=== PATIENT | female | born 1990 | race Caucasian/White ===

== ENCOUNTER 2018-03-03 09:44 | Emergency (ER) | payer OTHER ==
[2018-03-03 11:24] LABS: Urine Blood TRACE (NEG); Urine Glucose NEGATIVE (NEG); Urine Protein TRACE (NEG); Urine pH 6.5 (5.0-7.0)
[2018-03-03] MEDS ORDERED: ONDANSETRON 4 MG/2 ML VIAL ONE (11:43)
[2018-03-03] MEDS ORDERED: FAMOTIDINE 20 MG/2 ML VIAL IV ONE (11:44)
[2018-03-03 11:53] LABS: Absolute Lymphocytes (CBC) 1.4 K/uL (0.7-4.9); Absolute Monocytes 0.6 K/uL (0.1-1.3); Absolute Neutrophil 6.1 K/uL (1.8-8.0); Basophils % 0.7 % (0-1.3); Eosinophils % 0.1 % (0-4.4); Hematocrit 40.8 % (36.0-45.0); Lymphocytes % 17.3 % (15.3-44.8); MCH 32.7 pg (27.0-35.0); MCV 95.4 fL (80-100); MPV 8.8 fL (7.6-11.3); Monocytes % 7.6 % (3.3-12.3); RBC Red Blood Cell Count 4.27 M/uL (3.86-4.86)
[2018-03-03 12:04] LABS: Bicarbonate 19 mEq/L (21-31); Glucose Level 96 mg/dL (65-120); Lipase 15 U/L (22-51); Potassium 3.1 mEq/L (3.6-5.0); Sodium Level 137 mEq/L (135-145)
[2018-03-03 12:10] LABS: ALT/SGPT 73 IU/L (10-60); AST/SGOT 101 IU/L (10-42); Albumin 4.3 g/dL (3.2-5.5); Alkaline Phosphatase 95 IU/L (42-121); Amylase Level 62 U/L (28-100); BUN Blood Urea Nitrogen 6 mg/dL (6-20); Bilirubin Direct 0.2 mg/dL (0-0.2); Bilirubin Total 0.9 mg/dL (0.3-1.2); Protein, Total 7.8 g/dL (6.0-8.3)
[2018-03-03 12:31] LABS: Urine Bacteria <20 /HPF (<20); Urine Culture Reflex Order REFLEXED
[2018-03-03] MEDS ORDERED: POTASSIUM 25 MEQ EFFERV TAB ONE (12:46)
--- NOTE | 2018-03-03 12:54 | RAD REPORT ---
EXAM DESCRIPTION: US - Abdomen Exam Limited - 03/03/2018 12:36 pm CLINICAL HISTORY: Abdominal pain. COMPARISON: None. FINDINGS: The gallbladder demonstrates no gallstones. No pericholecystic fluid or gallbladder wall t hickening. The common bile duct is normal measuring 3 mm. The liver demonstrates no findings of intrahepatic biliary dilatation. IMPRESSION: Unremarkable examination.
--- NOTE | 2018-03-03 13:12 | ER ---
Nurse's Notes [facility] Name: Sukhwinder Barry Age: 27 yrs Sex: Female : 1990 Arrival Date: 03/03/2018 Time: 09:49 Bed 6 Private MD: Diagnosis: Hypokalemia;Depression;Nausea and vomiting Presentation: 03/03 10:15 Presenting complaint: Patient states: scarlett been throwing up for weeks now,, im extremely hj depressed and im bipolar and im an alcoholic, i drink today; reports abdominal pain, diarrhea and constipation; reports fever and chills;. Transition of care: patient was not received from another setting of care. Onset of symptoms was March 03, 2018. Care prior to arrival: None. 10:15 Method Of Arrival: Ambulatory 10:15 Acuity: MASOUD 3 hj Triage Assessment: 10:18 General: Appears in no apparent distress. uncomfortable, Behavior is calm, cooperative, hj appropriate for age. Pain: Complains of pain in abdomen. 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 - Social history:: Smoking status: unknown Patient uses alcohol, on a daily basis. "No more than a fifth per day of vodka.". Screenin:21 Abuse screen: Denies threats or abuse. Denies injuries from another. Nutritional jl7 screening: No deficits noted. Tuberculosis screening: No symptoms or risk factors identified. Fall Risk None identified. Assessment: 11:00 General: Appears uncomfortable, Behavior is cooperative, anxious, crying, Smells of jl7 alcohol. Pain: Denies pain. Neuro: Level of Consciousness is awake, alert, obeys commands, Oriented to person, place, time, situation. Cardiovascular: Heart tones S1 S2 present Patient's skin is warm and dry. Respiratory: Airway is patent Respiratory effort is even, unlabored, Respiratory pattern is regular, symmetrical. GI: Abdomen is flat, non-distended, Bowel sounds present X 4 quads. Reports nausea, vomiting. : No signs and/or symptoms were reported regarding the genitourinary system. EENT: No signs and/or symptoms were reported regarding the EENT system. Derm: Skin is pink, warm \\T\\ dry. Musculoskeletal: No signs and/or symptoms reported regarding the musculoskeletal system. 12:30 Reassessment: Patient and/or family updated on plan of care and expected duration. Pain jl7 level reassessed. Patient is alert, oriented x 3, equal unlabored respirations, skin warm/dry/pink. Patient states feeling better. Patient states symptoms have improved. 13:25 Reassessment: Patient and/or family updated on plan of care and expected duration. Pain jl7 level reassessed. Patient is alert, oriented x 3, equal unlabored respirations, skin warm/dry/pink. Psych: 11:16 Subjective: Patient's mood is sad, Delusions are denied, Hallucinations are denied jl7 Having thoughts of denies suicidal and homicidal ideations. Objective: Patient is cooperative, Speech is normal. Interventions: none. Suicide Risk Assessment: Sad Person Scale: Sex of patient: Female: Score 0 points. Age of patient: Score 1 point if patient 15-34. Depression: Score 1 point if signs of depression are present. Previous Attempt: Score 0 point if patient has not previously attempted suicide. Substance Abuse: Score 1 point if patient abuses alcohol or drugs. Rational Thinking: Score 0 point if patient has rational thinking. Social Support: Score 0 if social support is present/available. Organized Plan: Score 0 if patient did not have an organized plan in place. Relationship: Score 0 point if patient has a spouse or domestic partner. Chronic Sickness: Score 0 point if patient does not have a chronic illness, debilitating, or severe disorder. TOTAL POINTS: If total points are 3-4, proposed clinical action is close follow-up/consider hospitalization. Safety Checks: Pt is not suicidal or homicidal. Patient uses one fifth of liquor, daily. Last use was 60 minutes ago. Vital Signs: 10:18 BP 144 / 98; Pulse 65; Resp 18; Temp 98.8(TE); Pulse Ox 100% on R/A; Weight 65.77 kg; hj Height 5 ft. 6 in. (167.64 cm); Pain 8/10; 11:39 BP 121 / 86; Pulse 72; Resp 14; Pulse Ox 97% on R/A; mh5 12:30 BP 113 / 71; Pulse 73; Resp 16 S; Pulse Ox 96% on R/A; jl7 13:25 BP 112 / 72; Pulse 72; Resp 16 S; Pulse Ox 96% on R/A; jl7 10:18 Body Mass Index 23.40 (65.77 kg, 167.64 cm) ED Course: 09:49 Patient arrived in ED. mr 10:17 Triage completed. hj 10:18 Arm band placed on right wrist. hj 10:50 Chico Kong, SAMIA is Primary Nurse. jl7 10:52 Vick Gross PA is PHCP. cp 10:52 Vick Scott MD is Attending Physician. cp 11:21 Patient has correct armband on for positive identification. Bed in low position. Call jl7 light in reach. Side rails up X 1. Pulse ox on. NIBP on. Warm blanket given. 11:37 Initial lab(s) drawn, by fl, sent to lab. Urine collected: clean catch specimen, clear. 5 Inserted saline lock: 22 gauge in right forearm, using aseptic technique. Blood collected. 11:38 Urine Microscopic Only Sent. mh5 11:38 Amylase, Serum Sent. mh5 11:38 Basic Metabolic Panel Sent. mh5 11:38 CBC with Diff Sent. mh5 11:38 Creatinine for Radiology Sent. mh5 11:38 Hepatic Function Sent. mh5 11:39 Lipase Sent. mh5 11:40 Placed in gown. mh5 12:30 Note: ultrasound done portable. hr 12:36 US Abdomen Limited In Process Unspecified. EDMS 12:41 EKG done, by mold tooling technician. reviewed by Vick CASTILLO. at1 13:26 No provider procedures requiring assistance completed. IV discontinued, intact, jl7 bleeding controlled, No redness/swelling at site. Pressure dressing applied. Administered Medications: 11:40 Drug: Zofran 4 mg Route: IVP; Site: right antecubital; jl7 12:24 Follow up: Response: No adverse reaction; Nausea is decreased jl7 11:56 Drug: Pepcid 20 mg Route: IVP; Site: right antecubital; jl7 12:24 Follow up: Response: No adverse reaction jl7 12:30 Drug: Potassium Effervescent Tablet 50 mEq Route: PO; jl7 13:24 Follow up: Response: No adverse reaction jl7 Outcome: 13:11 Discharge ordered by MD. hartman 13:26 Discharged to home ambulatory. jl7 13:26 Condition: stable 13:26 Discharge instructions given to patient, Instructed on discharge instructions, follow up and referral plans. medication usage, Demonstrated understanding of instructions, follow-up care, medications, Prescriptions given X 3. 13:28 Patient left the ED. jl7 Signatures: Dispatcher [employer] EDUT Noa Escalera mr Jorgito, Juju hr Zara cardenas, funeral limousine driver EKG Tat1 Nicola Weber, RN RN Vick Burgess PA PA cp Martinez, Maria 5 Chico Kong RN RN jl7 Corrections: (The following items were deleted from the chart) 10:20 10:18 Pulse 65bpm; Resp 18bpm; Pulse Ox 100% RA; Temp 98.8F Temporal; 65.77 kg; Height hj 5 ft. 6 in.; BMI: 23.4; Pain 8/10; hj
--- NOTE | 2018-03-03 13:13 | EDPHYS ---
Physician Documentation [facility] Name: Sukhwinder Barry Age: 27 yrs Sex: Female : 1990 Arrival Date: 03/03/2018 Time: 09:49 Bed 6 Private MD: ED Physician Vick Scott HPI: 03/03 10:58 This 27 yrs old Female presents to ER via Ambulatory with complaints of cp Depression, Fever, Vomiting. 10:58 The patient presents with abdominal pain in the upper abdomen. Onset: The cp symptoms/episode began/occurred for weeks. 10:58 The symptoms do not radiate. Associated signs and symptoms: Pertinent positives: nausea cp and vomiting, constipation, diarrhea. The symptoms are described as waxing/waning. Severity of pain: in the emergency department the pain is unchanged despite home interventions. Patient reports history of daily drinking due to depression over past several weeks. Denies suicidal of homicidal ideations. 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 - Social history:: Smoking status: unknown Patient uses alcohol, on a daily basis. "No more than a fifth per day of vodka.". ROS: 11:05 Constitutional: Positive for weight loss, Negative for body aches, chills, fever, poor cp PO intake. 11:05 Eyes: Negative for injury, pain, redness, and discharge. cp 11:05 ENT: Negative for drainage from ear(s), ear pain, sore throat, difficulty swallowing, difficulty handling secretions. 11:05 Cardiovascular: Negative for chest pain, edema, palpitations. 11:05 Respiratory: Negative for cough, shortness of breath, wheezing. 11:05 Abdomen/GI: Positive for abdominal pain, nausea, vomiting, anorexia, Negative for diarrhea, constipation, black/tarry stool, rectal bleeding. 11:05 Back: Negative for pain at rest, pain with movement, radiated pain. 11:05 : Negative for urinary symptoms. 11:05 Skin: Negative for cellulitis, rash. 11:05 Neuro: Negative for altered mental status, dizziness, headache, numbness, tingling, tremor, weakness. 11:05 Psych: Positive for depression, ETOH abuse, Negative for auditory hallucinations, visual hallucinations, homicidal ideation, suicide gesture, suicidal ideation. 11:05 All other systems are negative. Exam: 11:12 Constitutional: The patient appears in no acute distress, alert, awake, cp non-diaphoretic, non-toxic, well developed, well nourished, tearful 11:12 Head/Face: Normocephalic, atraumatic. cp 11:12 Eyes: Pupils equal round and reactive to light, extra-ocular motions intact. Lids and cp lashes normal. Conjunctiva and sclera are non-icteric and not injected. Cornea within normal limits. Periorbital areas with no swelling, redness, or edema. ENT: Nares patent. No nasal discharge, no septal abnormalities noted. Tympanic membranes are normal and external auditory canals are clear. Oropharynx with no redness, swelling, or masses, exudates, or evidence of obstruction, uvula midline. Mucous membranes moist. Chest/axilla: Normal chest wall appearance and motion. Nontender with no deformity. No lesions are appreciated. 11:12 Cardiovascular: Rate: normal, Rhythm: regular, Pulses: Pulses are 2+ in right radial artery and left radial artery. JVD: is not appreciated. 11:12 Respiratory: the patient does not display signs of respiratory distress, Respirations: normal, no use of accessory muscles, no retractions, no splinting, no tachypnea, labored breathing, is not present, Breath sounds: are clear throughout, no decreased breath sounds, no stridor, no wheezing. 11:12 Abdomen/GI: Inspection: abdomen appears normal, Bowel sounds: active, all quadrants, Palpation: soft, in all quadrants, moderate abdominal tenderness, in the right upper quadrant and left upper quadrant, rebound tenderness, is not appreciated, involuntary guarding, is not appreciated. 11:12 Back: pain, is absent, ROM is normal. 11:12 Skin: cellulitis, is not appreciated, no rash present. 11:12 Neuro: Orientation: to person, place \\T\\ time. Mentation: is normal, Cerebellar function: is grossly normal, Motor: moves all fours, strength is normal, Sensation: no obvious gross deficits. 11:12 Psych: Behavior/mood is depressed, Patient has no thoughts/intents to harm self or others. Judgement / Insight is normal. Delusions/hallucinations are not present. 12:30 ECG was reviewed by the Attending Physician. Vital Signs: 10:18 BP 144 / 98; Pulse 65; Resp 18; Temp 98.8(TE); Pulse Ox 100% on R/A; Weight 65.77 kg; hj Height 5 ft. 6 in. (167.64 cm); Pain 8/10; 11:39 BP 121 / 86; Pulse 72; Resp 14; Pulse Ox 97% on R/A; mh5 12:30 BP 113 / 71; Pulse 73; Resp 16 S; Pulse Ox 96% on R/A; jl7 13:25 BP 112 / 72; Pulse 72; Resp 16 S; Pulse Ox 96% on R/A; jl7 10:18 Body Mass Index 23.40 (65.77 kg, 167.64 cm) hj MDM: 10:52 Patient medically screened. cp 12:00 Differential diagnosis: cholecystitis, Cholelithiasis, gastroesophageal reflux disease, cp GI Bleed, pancreatitis, Peptic Ulcer Disease, Perf. Duodenal Ulcer, Perf. Gastric Ulcer, Pyelonephritis, urinary tract infection. 13:00 Data reviewed: vital signs, nurses notes, lab test result(s), EKG, radiologic studies, cp ultrasound. 13:00 Test interpretation: by ED physician or midlevel provider: ECG. 13:05 Counseling: I had a detailed discussion with the patient and/or guardian regarding: the cp historical points, exam findings, and any diagnostic results supporting the discharge/admit diagnosis, lab results, radiology results, the need for outpatient follow up, a family practitioner, to return to the emergency department if symptoms worsen or persist or if there are any questions or concerns that arise at home. 13:05 Response to treatment: the patient's symptoms have markedly improved after treatment, cp VSS. Patient observed resting comfortably in exam room, and as a result, I will discharge patient. 03/03 11:17 Order name: Urine Dipstick--Ancillary (enter results); Complete Time: 11:45 ag 03/03 11:45 Interpretation: Normal except: UKET 3+; UBLD TRACE. cp 03/03 11:17 Order name: Urine --Ancillary (enter results); Complete Time: 11:45 ag 03/03 12:10 Interpretation: Reviewed. cp 03/03 11:18 Order name: Urine Microscopic Only; Complete Time: 12:52 cp 03/03 12:52 Interpretation: Normal except: UWBC 5-10; URBC 5-10; SQEPI 20-50. cp 03/03 11:18 Order name: Amylase, Serum; Complete Time: 12:52 cp 03/03 11:18 Order name: Basic Metabolic Panel; Complete Time: 12:52 cp 03/03 12:07 Interpretation: Normal except: K 3.1; CO2 19. cp 03/03 11:18 Order name: CBC with Diff; Complete Time: 11:59 cp 03/03 11:59 Interpretation: Normal except: SHAWN% 74.3. cp 03/03 11:18 Order name: Creatinine for Radiology cp 03/03 11:18 Order name: Hepatic Function; Complete Time: 12:52 cp 03/03 12:52 Interpretation: Normal except: SGOT 101; SGPT 73. cp 03/03 11:18 Order name: Lipase; Complete Time: 12:52 cp 03/03 12:09 Interpretation: LIP 15; Reviewed. cp 03/03 12:09 Order name: US Abdomen Limited; Complete Time: 12:58 cp 03/03 12:33 Order name: Urine Culture EDFL 03/03 10:53 Order name: Urine Dipstick-Ancillary (obtain specimen); Complete Time: 11:22 cp 03/03 10:53 Order name: Urine Test (obtain specimen); Complete Time: 11:22 cp 03/03 11:18 Order name: IV Saline Lock; Complete Time: 11:39 cp 03/03 11:18 Order name: Labs collected and sent; Complete Time: 11:39 cp 03/03 12:09 Order name: EKG; Complete Time: 12:09 cp 03/03 12:09 Order name: EKG - Nurse/Tech; Complete Time: 12:24 cp 03/03 12:59 Order name: PO challenge; Complete Time: 13:24 cp EC:30 Rate is 67 beats/min. Rhythm is regular. NM interval is normal. QRS interval is normal. cp QT interval is normal. No ST changes noted. Interpreted by me. Reviewed by me. Administered Medications: 11:40 Drug: Zofran 4 mg Route: IVP; Site: right antecubital; jl7 12:24 Follow up: Response: No adverse reaction; Nausea is decreased jl7 11:56 Drug: Pepcid 20 mg Route: IVP; Site: right antecubital; jl7 12:24 Follow up: Response: No adverse reaction jl7 12:30 Drug: Potassium Effervescent Tablet 50 mEq Route: PO; jl7 13:24 Follow up: Response: No adverse reaction jl7 Disposition: 16:20 Co-signature as Attending Physician, Vick Scott MD I agree with the assessment and mitchel plan of care. Disposition: 03/03/18 13:11 Discharged to Home. Impression: Hypokalemia, Depression, Nausea and vomiting. - Condition is Stable. - Discharge Instructions: Alcohol and Drug Addiction, Finding Treatment, Depression, Adult, Potassium Content of Foods, Nausea and Vomiting, Alcohol Abuse and Nutrition, Hypokalemia. - Prescriptions for Protonix 40 mg Oral Tablet - take 1 tablet by ORAL route once daily; 30 tablet. Zofran 4 mg Oral Tablet - take 1 tablet by ORAL route every 12 hours As needed; 20 tablet. Potassium Chloride 10 mEq Oral Capsule, Sustained Release - take 1 tablet by ORAL route every 12 hours for 5 days; 10 tablet. - Medication Reconciliation Form, Thank You Letter, Antibiotic Education, Prescription Opioid Use form. - Follow up: Private Physician; When: 1 - 2 days; Reason: Recheck today's complaints. - Problem is new. - Symptoms have improved. Signatures: Dispatcher [employer] Vick Alvarenga MD MD cha Joaquin, Henry, RN RN hj Page, Corey, PA PA cp Leal, Jahala, RN RN jl7
--- NOTE | 2018-03-03 16:40 | EKG ---
Test Date: 2018-03-03 Test Time: 12:25:13 Skiving Machine Operator: SARAH MEASUREMENT RESULTS: Intervals: Rate: 67 NE: 150 QRSD: 86 QT: 446 QTc: 471 [place]: P: 38 NE: 150 QRS: 37 T: 41 INTERPRETIVE STATEMENTS: Normal sinus rhythm with sinus arrhythmia Normal ECG No previous ECG available for comparison Electronically Signed On 03-03-18 16:40:00 CDT by Chris Maki
== END 2018-03-03 13:28 | disposition home or self-care (01) ==
LOC: ER 09:44
DX: E87.6 Hypokalemia (principal); R11.2 Nausea with vomiting, unspecified
CPT/HCPCS: 36415; 76705; 80048; 80076; 81003; 81015; 81025; 82150; 83690; 85025; 87086; 87088; 93005; 96374; 96375; 99284; J2405

== ENCOUNTER 2019-03-04 17:48 | Emergency (ER) | payer OTHER ==
--- OUTSIDE RECORDS SUMMARY | 2019-03-04 17:50 | XMS REPORT ---
:1990 Author Organization [facility] Address [address] [place] [address] Care Team Providers Name Role Phone Unavailable Unavailable Unavailable Payers Payer Name Policy Type Policy Number Effective Date Expiration Date Problems This patient has no known problems. Allergies, Adverse Reactions, Alerts Allergy Allergy Status Severity Reaction(s) Onset Inactive Treating Comments Name Type Date Date Clinician No Known DA Active U 2017-07 Allergies -25 00:00:0 0 Medications This patient has no known medications. Results Test Description Test Time Test Comments Text Results Atomic Results Result Comments BASIC METABOLIC PANEL 2019-02-08 07:55:00 Test Item Value Reference Range Comments SODIUM (test code=NA) 138 mmol/L 134-147 POTASSIUM (test code=K) 3.4 mmol/L 3.4-5.0 CHLORIDE (test code=CL) 109 mmol/L 100-108 CARBON DIOXIDE (test code=CO2) 19 mmol/L 21-32 ANION GAP (test code=GAP) 10.0 GAP calc 4.0-15.0 GLUCOSE (test code=GLU) 95 MG/DL 70-110 BLOOD UREA NITROGEN (test code=BUN) 9 MG/DL 7-18 GLOMERULAR FILTRATION RATE (test code=GFR) >=60 max estimate estGFR >60 CREATININE (test code=CREAT) 0.7 MG/DL 0.6-1.0 CALCIUM (test code=CA) 9.0 MG/DL 8.5-10.1 HEPATIC FUNCTION [id number] 07:55:00 Test Item Value Reference Range Comments TOTAL PROTEIN (test code=PROT) 8.6 G/DL 6.4-8.2 ALBUMIN (test code=ALB) 4.2 G/DL 3.4-5.0 BILIRUBIN TOTAL (test code=BILT) 0.50 MG/DL 0.2-1.2 BILIRUBIN DIRECT (test code=BILD) 0.20 MG/DL 0.00-0.30 BILIRUBIN INDIRECT (test code=BILIND) 0.30 MG/DL 0.2-1.2 SGOT/AST (test code=AST) 64 Unit/L 15-37 SGPT/ALT (test code=ALT) 71 Unit/L 12-78 ALKALINE PHOSPHATASE TOTAL (test code=ALKP) 135 Unit/L 45-117 [id number] 07:55:00 Test Item Value Reference Range Comments LIPASE (test code=LIP) 98 Unit/L 114-286 BASIC METABOLIC [id number] 07:48:00 Test Item Value Reference Range Comments SODIUM (test code=NA) 138 mmol/L 134-147 POTASSIUM (test code=K) 3.4 mmol/L 3.4-5.0 CHLORIDE (test code=CL) 109 mmol/L 100-108 CARBON DIOXIDE (test code=CO2) 19 mmol/L 21-32 ANION GAP (test code=GAP) 10.0 GAP calc 4.0-15.0 GLUCOSE (test code=GLU) 95 MG/DL 70-110 BLOOD UREA NITROGEN (test code=BUN) 9 MG/DL 7-18 GLOMERULAR FILTRATION RATE (test code=GFR) estGFR >60 CREATININE (test code=CREAT) MG/DL 0.6-1.0 CALCIUM (test code=CA) 9.0 MG/DL 8.5-10.1 HEPATIC FUNCTION [id number] 07:48:00 Test Item Value Reference Range Comments TOTAL PROTEIN (test code=PROT) G/DL 6.4-8.2 ALBUMIN (test code=ALB) G/DL 3.4-5.0 BILIRUBIN TOTAL (test code=BILT) MG/DL 0.2-1.2 BILIRUBIN DIRECT (test code=BILD) MG/DL 0.00-0.30 BILIRUBIN INDIRECT (test code=BILIND) MG/DL 0.2-1.2 SGOT/AST (test code=AST) Unit/L 15-37 SGPT/ALT (test code=ALT) Unit/L 12-78 ALKALINE PHOSPHATASE TOTAL (test code=ALKP) Unit/L 45-117 [id number] 07:48:00 Test Item Value Reference Range Comments LIPASE (test code=LIP) Unit/L 114-286 CBC W/AUTO [id number] 07:42:00 Test Item Value Reference Range Comments WHITE BLOOD CELL (test code=WBC) 7.1 K/mm3 3.5-11.0 RED BLOOD CELL (test code=RBC) 4.71 M/mm3 4.70-6.10 HEMOGLOBIN (test code=HGB) 15.0 G/DL 10.4-14.9 HEMATOCRIT (test code=HCT) 44.0 % 31.5-44.1 MEAN CELL VOLUME (test code=MCV) 93.4 Fl 84.5-98.6 MEAN CELL HGB (test code=MCH) 31.8 pg 27.0-34.2 MEAN CELL HGB CONCETRATION (test code=MCHC) 34.1 G/DL 31.5-34.0 RED CELL DISTRIBUTION WIDTH (test code=RDW) 12.6 SD 11.5-14.5 PLATELET COUNT (test code=PLT) 222.0 K/mm3 150-450 MEAN PLATELET VOLUME (test code=MPV) 10.10 fL 7.0-10.5 NEUTROPHIL % (test code=NT%) 63.9 % 40-76 LYMPHOCYTE % (test code=LY%) 23.7 % 20.5-51.1 MONOCYTE % (test code=MO%) 11.5 % 1.7-9.3 EOSINOPHIL % (test code=EO%) 0.6 % 0.0-6.0 BASOPHIL % (test code=BA%) 0.3 % 0.0-2.0 NEUTROPHIL # (test code=NT#) 4.51 K/mm3 1.8-7.6 LYMPHOCYTE # (test code=LY#) 1.7 K/mm3 0.6-3.2 MONOCYTE # (test code=MO#) 0.8 K/mm3 0.3-1.1 EOSINOPHIL # (test code=EO#) 0.0 K/mm3 0.0-0.4 BASOPHIL # (test code=BA#) 0.0 K/mm3 0.0-0.1 MANUAL DIFF REQUIRED (test code=MDIFF) NO DIFF/SCN CRITERIA URINALYSIS [id number] 07:33:00 Test Item Value Reference Range Comments UA COLOR (test code=COLU) YELLOW discript YEL/STRAW UA APPEARANCE (test code=APPU) HAZY discript CLEAR UA GLUCOSE DIPSTICK (test code=DGLUU) NEGATIVE mg/dL NEG UA BILIRUBIN DIPSTICK (test code=BILU) NEGATIVE mg/dL NEG UA KETONE DIPSTICK (test code=KETU) NEGATIVE mg/dL NEG UA SPECIFIC GRAVITY (test code=SGU) <=1.005 SG 1.005-1.030 UA BLOOD DIPSTICK (test code=BECKY) NEGATIVE mg/DL NEG UA PH DIPSTICK (test code=STEFANI) 6.0 pH UNITS 5.0-7.0 UA PROTEIN DIPSTICK (test code=PROU) NEGATIVE mg/dL NEG UA UROBILINIOGEN DIPSTICK (test code=URO) 0.2 mg/dL <2.0 UA NITRITE DIPSTICK (test code=LIBERTAD) NEGATIVE SCREEN NEG UA LEUKOCYTE ESTERASE DIPSTICK (test 2+ Leuk/mcL NEGATIVE code=LEUU) UA WBC (test code=WBCU) 3-5 #WBC/HPF 0-3 UA RBC (test code=RBCU) 1-3 #RBC/HPF 0-3 UA BACTERIA (test code=BACU) 1+ /HPF NONE-TRACE UA SQUAMOUS CELLS (test code=SQU) 3+ /HPF NONE UA AMORPHOUS SEDIMENT (test code=AMORU) TRACE NONE SEEN URINALYSIS [id number] 07:19:00 Test Item Value Reference Range Comments UA COLOR (test code=COLU) YELLOW discript YEL/STRAW UA APPEARANCE (test code=APPU) HAZY discript CLEAR UA GLUCOSE DIPSTICK (test code=DGLUU) NEGATIVE mg/dL NEG UA BILIRUBIN DIPSTICK (test code=BILU) NEGATIVE mg/dL NEG UA KETONE DIPSTICK (test code=KETU) NEGATIVE mg/dL NEG UA SPECIFIC GRAVITY (test code=SGU) <=1.005 SG 1.005-1.030 UA BLOOD DIPSTICK (test code=BECKY) NEGATIVE mg/DL NEG UA PH DIPSTICK (test code=STEFANI) 6.0 pH UNITS 5.0-7.0 UA PROTEIN DIPSTICK (test code=PROU) NEGATIVE mg/dL NEG UA UROBILINIOGEN DIPSTICK (test code=URO) 0.2 mg/dL <2.0 UA NITRITE DIPSTICK (test code=LIBERTAD) NEGATIVE SCREEN NEG UA LEUKOCYTE ESTERASE DIPSTICK (test 2+ Leuk/mcL NEGATIVE code=LEUU)
[2019-03-04] MEDS ORDERED: ONDANSETRON 4 MG/2 ML VIAL ONE (18:42)
[2019-03-04] MEDS ORDERED: MORPHINE 4 MG/ML SYR ONE ×2 (18:42→21:00)
[2019-03-04] MEDS ORDERED: NA CHLORIDE 0.9% 1,000 ML ONE (18:42)
[2019-03-04 18:55] LABS: Absolute Lymphocytes (CBC) 1.7 K/uL (0.7-4.9); Absolute Monocytes 0.7 K/uL (0.1-1.3); Absolute Neutrophil 3.9 K/uL (1.8-8.0); Basophils % 0.5 % (0-1.3); Eosinophils % 0.7 % (0-4.4); Hematocrit 43.3 % (36.0-45.0); Lymphocytes % 26.4 % (15.3-44.8); MPV 9.6 fL (7.6-11.3); Monocytes % 11.5 % (3.3-12.3); RBC Red Blood Cell Count 4.56 M/uL (3.86-4.86)
[2019-03-04 20:11] LABS: ALT/SGPT 73 U/L (12-78); AST/SGOT 59 U/L (15-37); Albumin 3.7 g/dL (3.4-5.0); Alkaline Phosphatase 133 U/L (45-117); BUN Blood Urea Nitrogen 6 mg/dL (7-18); Bicarbonate 23 mmol/L (21-32); Bilirubin Direct 0.2 mg/dL (0-0.2); Bilirubin Total 0.4 mg/dL (0.2-1.0); Glucose Level 84 mg/dL (74-106); Lipase 152 U/L (73-393); Potassium 3.2 mmol/L (3.5-5.1); Protein, Total 7.5 g/dL (6.4-8.2); Sodium Level 142 mmol/L (136-145)
[2019-03-04] MEDS ORDERED: KETOROLAC 30 MG/ML INJ ONE (20:19)
[2019-03-04 20:28] LABS: Urine Amorphous Sediment 2+ /HPF (NONE SEEN); Urine Bacteria 20-50 /HPF (<20); Urine Culture Reflex Order REFLEXED
[2019-03-04 20:43] LABS: Urine Blood 2+ (NEG); Urine Glucose NEGATIVE (NEG); Urine Protein 1+ (NEG)
--- NOTE | 2019-03-04 20:58 | RAD REPORT ---
EXAM DESCRIPTION: CT - Abdomen Pelvis W Contrast - 03/04/2019 8:28 pm CLINICAL HISTORY: Abdominal pain, history of endometriosis COMPARISON: March 01 TECHNIQUE: Biphasic, helical CT imaging of the abdomen and pelvis was performed following 100 ml non -ionic IV contrast. Oral contrast was given. All CT scans are performed using dose optimization technique as appropriate and may include automated exposure control or mA/KV adjustment according to patient size. FINDINGS: No suspicious findings in the lung bases. Prominent fatty liver again noted. No focal liver lesion. No new spleen or pancreatic finding. Gallbl adder and biliary tree are also without suspicious finding. Symmetric renal function is seen with no hydronephrosis or suspicious renal mass. No pyelonephritis o r acute parenchymal process. No bladder abnormalities. No adrenal abnormalities. No dilated bowel loops or bowel wall thickening. No free air, free fluid or inflammatory stranding. No hernia, mass or bulky lymphadenopathy. Uterus and left ovary show no suspicious findings. Right o vary contains a 2 centimeter cyst. No cyst rupture or hemorrhage seen. No suspicious bony findings. IMPRESSION: Contrast enhanced CT abdomen and pelvis showing no acute finding. Diffuse fatty infiltration again noted. Small right ovarian cyst again noted.
[2019-03-04] MEDS ORDERED: CEFTRIAXONE/SWI 1gm 1 GM/10 ML SYR ONE (21:00)
--- NOTE | 2019-03-04 21:05 | ER ---
Nurse's Notes [facility] Name: Sukhwinder Barry Age: 28 yrs Sex: Female : 1990 Arrival Date: 03/04/2019 Time: 17:49 Bed 6 Private MD: Diagnosis: Urinary tract infection, site not specified;Unspecified abdominal pain Presentation: 03/04 17:54 Presenting complaint: Patient states: I had sx about 3 weeks ago for endometriosis and la1 have been having really bad lower abd cramping and back pain, I have tried all of the things the doctors have told me to do but the pain wont stop. Transition of care: patient was not received from another setting of care. Onset of symptoms was March 04, 2019. Risk Assessment: Do you want to hurt yourself or someone else? Patient reports no desire to harm self or others. Initial Sepsis Screen: Does the patient meet any 2 criteria? No. Patient's initial sepsis screen is negative. Does the patient have a suspected source of infection? No. Patient's initial sepsis screen is negative. Care prior to arrival: None. 17:54 Method Of Arrival: Ambulatory la1 17:54 Acuity: MASOUD 3 la1 Historical: - Allergies: 17:55 No Known Allergies; la1 - PMHx: 17:55 Anxiety; Bipolar disorder; Depression; Schizophrenia; la1 - PSHx: 17:55 sx for endometriosis; ; la1 - Immunization history:: Adult Immunizations up to date. - Social history:: Smoking status: Patient uses tobacco products, smokes one pack cigarettes per day. - Ebola Screening: : No symptoms or risks identified at this time. Screenin:30 Abuse screen: Denies threats or abuse. Denies injuries from another. Nutritional sv screening: No deficits noted. Tuberculosis screening: No symptoms or risk factors identified. Fall Risk None identified. Assessment: 18:30 General: Appears in no apparent distress. uncomfortable, well developed, Behavior is sv calm, cooperative, appropriate for age. Pain: Complains of pain in abdomen Pain currently is 10 out of 10 on a pain scale. Pain began for a few weeks Is. Neuro: Level of Consciousness is awake, alert, obeys commands, Oriented to person, place, time, situation, Moves all extremities. Full function Gait is steady. Respiratory: Respiratory effort is even, unlabored, Respiratory pattern is regular, symmetrical. GI: Abdomen is flat, Reports lower abdominal pain. Derm: Skin is pink, warm \T\ dry. 19:45 Reassessment: Patient is alert, oriented x 3, equal unlabored respirations, skin lp1 warm/dry/pink. Patient states continued pain to abdomen radiating to lower back. 19:45 Pain: Pain currently is 8 out of 10 on a pain scale. GI: Abdomen is non-distended, lp1 Bowel sounds present X 4 quads. Abdomen is tender to palpation in right lower quadrant and left lower quadrant. 20:40 Reassessment: Patient crying, states pain to lower back continued; Provider notified. lp1 21:13 Reassessment: Patient appears in no apparent distress at this time. No changes from ak1 previously documented assessment. Patient and/or family updated on plan of care and expected duration. Pain level reassessed. Patient is alert, oriented x 3, equal unlabored respirations, skin warm/dry/pink. Vital Signs: 17:55 BP 126 / 90; Pulse 120; Resp 16; Temp 97.5; Pulse Ox 100% on R/A; Weight 74.84 kg; la1 Height 5 ft. 6 in. (167.64 cm); Pain 10/10; 18:35 BP 126 / 91; Pulse 69; Resp 17; Pulse Ox 98% ; sv 19:00 BP 115 / 90; Pulse 66; Resp 16; Pulse Ox 97% ; sv 19:30 BP 126 / 83; Pulse 64; Resp 16; Pulse Ox 96% on R/A; lp1 21:14 BP 122 / 86; Pulse 76; Resp 16; Temp 97.5; Pulse Ox 100% on R/A; ak1 17:55 Body Mass Index 26.63 (74.84 kg, 167.64 cm) la1 ED Course: 17:49 Patient arrived in ED. rg4 17:55 Triage completed. la1 17:56 Arm band placed on left wrist. la1 17:58 Soy Mae NP is PHCP. pm1 17:58 Vick Scott MD is Attending Physician. pm1 18:30 Patient has correct armband on for positive identification. Bed in low position. Call sv light in reach. Adult w/ patient. Pulse ox on. NIBP on. Door closed. Head of bed elevated. 18:30 Initial lab(s) drawn, by me, sent to lab. Inserted saline lock: 20 gauge in right sv antecubital area, using aseptic technique. Blood collected. Flushed right antecubital with 5 ml normal saline. 18:46 Miguelina Gutiérrez RN is Primary Nurse. sv 18:58 Radiology exam delayed due to lab results not completed at this time. (BUN/Creatinine) mw3 test not completed at this time. 19:14 Report given to Katiana GRACIA and Virginia GRACIA. sv 19:21 Primary Nurse role handed off by Miguelina Gutiérrez RN sv 19:56 Katiana Orellana RN is Primary Nurse. lp1 20:27 CT completed. Patient tolerated procedure well. Patient moved back from CT. mw3 20:28 CT Abd/Pelvis - W/Contrast: IV contrast only In Process Unspecified. EDMS 21:14 No provider procedures requiring assistance completed. IV discontinued, intact, ak1 bleeding controlled, No redness/swelling at site. Pressure dressing applied. Administered Medications: 18:35 Drug: NS 0.9% 1000 ml Route: IV; Rate: 1000 ml; Site: right antecubital; sv 20:30 Follow up: IV Status: Completed infusion; IV Intake: 1000ml lp1 18:35 Drug: Zofran 4 mg Route: IVP; Site: right antecubital; sv 19:45 Follow up: Response: No adverse reaction lp1 18:37 Drug: morphine 4 mg Route: IVP; Site: right antecubital; sv 19:45 Follow up: Response: Pain is decreased; States pain relief to abdomen but continued lp1 pain to lower back 20:11 Drug: TORadol 30 mg Route: IVP; Site: right antecubital; lp1 20:42 Follow up: Response: Pain is unchanged, physician notified lp1 20:55 Drug: Rocephin 1 grams Route: IV; Rate: calculated rate; Site: right antecubital; lp1 21:17 Follow up: IV Status: Completed infusion ak1 20:55 Drug: morphine 4 mg Route: IVP; Site: right antecubital; lp1 21:17 Follow up: Response: No adverse reaction; Pain is decreased ak1 Intake: 20:30 IV: 1000ml; Total: 1000ml. lp1 Outcome: 21:04 Discharge ordered by . pm1 21:14 Discharged to home ambulatory, with family. ak1 21:14 Condition: good 21:14 Discharge instructions given to patient, Instructed on discharge instructions, follow up and referral plans. no drinking with medication, no driving heavy equipment, medication usage, safe sex practices, control, Demonstrated understanding of instructions, follow-up care, medications, Prescriptions given X 2. 21:30 Patient left the ED. lp1 Signatures: Dispatcher [employer] EDNM Miguelina Gutiérrez RN RN sv Pena, Laura RN RN lp1 Girma Leone RN RN la1 Virginia House RN RN ak1 Soy Mae, BAND EDGER BAND EDGER pm1 Yuko Amezquita rg4 Natalie Nascimento mw3 Corrections: (The following items were deleted from the chart) 20:04 19:45 Reassessment: Patient is alert, oriented x 3, equal unlabored respirations, skin lp1 warm/dry/pink. Patient states continued pain to abdomen radiating to lower back lp1 21:50 21:49 Patient left the ED. lp1 lp1
--- NOTE | 2019-03-04 21:05 | EDPHYS ---
Physician Documentation [facility] Name: Sukhwinder Barry Age: 28 yrs Sex: Female : 1990 Arrival Date: 03/04/2019 Time: 17:49 Bed 6 Private MD: AMBER Physician Vick Scott HPI: 03/04 19:00 This 28 yrs old Female presents to ER via Ambulatory with complaints of pm1 Abdominal Pain, Back Pain. 19:00 The patient presents with abdominal pain suprapubic area. Onset: The symptoms/episode pm1 began/occurred 3 week(s) ago. The symptoms do not radiate. Associated signs and symptoms: Pertinent positives: hematuria, Pertinent negatives: nausea, vomiting, and diarrhea, chest pain, fever, shortness of breath. The symptoms are described as achy, sharp. Modifying factors: The symptoms are alleviated by nothing, the symptoms are aggravated by nothing. Severity of pain: in the emergency department the pain is actually worse. The patient has been recently seen by a physician: GI doctors three days ago for the same complaint. CT was performed and it was negative. Patient reports some blood on toilet paper with wiping after urinating. Historical: - Allergies: 17:55 No Known Allergies; la1 - PMHx: 17:55 Anxiety; Bipolar disorder; Depression; Schizophrenia; la1 - PSHx: 17:55 sx for endometriosis; ; la1 - Immunization history:: Adult Immunizations up to date. - Social history:: Smoking status: Patient uses tobacco products, smokes one pack cigarettes per day. - Ebola Screening: : No symptoms or risks identified at this time. ROS: 19:00 Constitutional: Negative for fever, chills, and weight loss, Eyes: Negative for injury, pm1 pain, redness, and discharge, ENT: Negative for injury, pain, and discharge, Neck: Negative for injury, pain, and swelling, Cardiovascular: Negative for chest pain, palpitations, and edema, Respiratory: Negative for shortness of breath, cough, wheezing, and pleuritic chest pain. 19:00 Back: Negative for injury and pain. 19:00 MS/Extremity: Negative for injury and deformity, Skin: Negative for injury, rash, and discoloration, Neuro: Negative for headache, weakness, numbness, tingling, and seizure. 19:00 Abdomen/GI: Positive for abdominal pain, of the suprapubic area, Negative for nausea, vomiting, and diarrhea. 19:00 Back: Positive for flank pain, bilaterally, Negative for decreased range of motion. 19:00 : Positive for hematuria. Exam: 19:00 Constitutional: This is a well developed, well nourished patient who is awake, alert, pm1 and in no acute distress. Head/Face: Normocephalic, atraumatic. Eyes: Pupils equal round and reactive to light, extra-ocular motions intact. Lids and lashes normal. Conjunctiva and sclera are non-icteric and not injected. Cornea within normal limits. Periorbital areas with no swelling, redness, or edema. ENT: Nares patent. No nasal discharge, no septal abnormalities noted. Tympanic membranes are normal and external auditory canals are clear. Oropharynx with no redness, swelling, or masses, exudates, or evidence of obstruction, uvula midline. Mucous membranes moist. Neck: Trachea midline, no thyromegaly or masses palpated, and no cervical lymphadenopathy. Supple, full range of motion without nuchal rigidity, or vertebral point tenderness. No Meningismus. Chest/axilla: Normal chest wall appearance and motion. Nontender with no deformity. No lesions are appreciated. Cardiovascular: Regular rate and rhythm with a normal S1 and S2. No gallops, murmurs, or rubs. Normal PMI, no JVD. No pulse deficits. Respiratory: Lungs have equal breath sounds bilaterally, clear to auscultation and percussion. No rales, rhonchi or wheezes noted. No increased work of breathing, no retractions or nasal flaring. 19:00 Back: No spinal tenderness. No costovertebral tenderness. Full range of motion. Skin: Warm, dry with normal turgor. Normal color with no rashes, no lesions, and no evidence of cellulitis. MS/ Extremity: Pulses equal, no cyanosis. Neurovascular intact. Full, normal range of motion. 19:00 Abdomen/GI: Inspection: abdomen appears normal, Bowel sounds: normal, Palpation: soft, mild abdominal tenderness, in the suprapubic area, mass, is not appreciated, rebound tenderness, is not appreciated. 19:00 Neuro: Orientation: is normal, Motor: moves all fours. Vital Signs: 17:55 BP 126 / 90; Pulse 120; Resp 16; Temp 97.5; Pulse Ox 100% on R/A; Weight 74.84 kg; la1 Height 5 ft. 6 in. (167.64 cm); Pain 10/10; 18:35 BP 126 / 91; Pulse 69; Resp 17; Pulse Ox 98% ; sv 19:00 BP 115 / 90; Pulse 66; Resp 16; Pulse Ox 97% ; sv 19:30 BP 126 / 83; Pulse 64; Resp 16; Pulse Ox 96% on R/A; lp1 21:14 BP 122 / 86; Pulse 76; Resp 16; Temp 97.5; Pulse Ox 100% on R/A; ak1 17:55 Body Mass Index 26.63 (74.84 kg, 167.64 cm) la1 MDM: 17:58 Patient medically screened. mitchel 21:03 Data reviewed: vital signs. Data interpreted: Pulse oximetry: on room air is 96 %. pm1 Interpretation: normal. Counseling: I had a detailed discussion with the patient and/or guardian regarding: the historical points, exam findings, and any diagnostic results supporting the discharge/admit diagnosis, lab results, radiology results, the need for outpatient follow up, to return to the emergency department if symptoms worsen or persist or if there are any questions or concerns that arise at home. 03/04 18:20 Order name: Basic Metabolic Panel; Complete Time: 20:26 pm1 03/04 18:20 Order name: CBC with Diff; Complete Time: 19:56 pm1 03/04 18:20 Order name: Creatinine for Radiology; Complete Time: 20:26 pm1 03/04 18:20 Order name: Hepatic Function; Complete Time: 20:26 pm1 03/04 18:20 Order name: Lipase; Complete Time: 20:26 pm1 03/04 18:24 Order name: Urine Microscopic Only; Complete Time: 20:31 pm1 03/04 18:48 Order name: CT Abd/Pelvis - W/Contrast: IV contrast only; Complete Time: 21:03 pm1 03/04 19:53 Order name: Urine Dipstick--Ancillary (enter results); Complete Time: 21:03 cm6 03/04 19:53 Order name: Urine --Ancillary (enter results); Complete Time: 21:03 cm6 03/04 20:30 Order name: Urine Culture [facility] 03/04 18:20 Order name: IV Saline Lock; Complete Time: 18:51 pm1 03/04 18:20 Order name: Labs collected and sent; Complete Time: 18:51 pm1 03/04 18:24 Order name: Urine Dipstick-Ancillary (obtain specimen); Complete Time: 19:59 pm1 03/04 19:09 Order name: Labs - recollect needed; Complete Time: 19:59 cm6 Administered Medications: 18:35 Drug: NS 0.9% 1000 ml Route: IV; Rate: 1000 ml; Site: right antecubital; sv 20:30 Follow up: IV Status: Completed infusion; IV Intake: 1000ml lp1 18:35 Drug: Zofran 4 mg Route: IVP; Site: right antecubital; sv 19:45 Follow up: Response: No adverse reaction lp1 18:37 Drug: morphine 4 mg Route: IVP; Site: right antecubital; sv 19:45 Follow up: Response: Pain is decreased; States pain relief to abdomen but continued lp1 pain to lower back 20:11 Drug: TORadol 30 mg Route: IVP; Site: right antecubital; lp1 20:42 Follow up: Response: Pain is unchanged, physician notified lp1 20:55 Drug: Rocephin 1 grams Route: IV; Rate: calculated rate; Site: right antecubital; lp1 21:17 Follow up: IV Status: Completed infusion ak1 20:55 Drug: morphine 4 mg Route: IVP; Site: right antecubital; lp1 21:17 Follow up: Response: No adverse reaction; Pain is decreased ak1 Disposition: 03/04/19 21:04 Discharged to Home. Impression: Urinary tract infection, site not specified, Unspecified abdominal pain. - Condition is Stable. - Discharge Instructions: Abdominal Pain, Adult, Urinary Tract Infection, Adult. - Prescriptions for Bactrim DS 800- 160 mg Oral Tablet - take 1 tablet by ORAL route every 12 hours for 10 days; 20 tablet. Tylenol- Codeine #3 300-30 mg Oral Tablet - take 2 tablets by ORAL route every 6 hours As needed; 20 tablet. - Medication Reconciliation Form, Thank You Letter, Antibiotic Education, Prescription Opioid Use form. - Follow up: Emergency Department; When: As needed; Reason: Worsening of condition. Follow up: Private Physician; When: 2 - 3 days; Reason: Recheck today's complaints, Continuance of care, Re-evaluation by your physician. - Problem is new. - Symptoms have improved. Addendum: 03/06/2019 07:59 Co-signature as Attending Physician, Vick Scott MD I agree with the assessment and c corona plan of care. Signatures: Dispatcher [employer] EDMS Miguelina Gutiérrez RN Vick Page MD MD cha Pena, Laura, RN RN lp1 Girma Leone RN RN la1 Soy Mae NP [employer] pm1 Jesenia Mcdonald cm6 Virginia House RN ak1 Corrections: (The following items were deleted from the chart) 03/04 21:49 21:04 03/04/2019 21:04 Discharged to Home. Impression: Urinary tract infection, site lp1 not specified; Unspecified abdominal pain. Condition is Stable. Forms are Medication Reconciliation Form, Thank You Letter, Antibiotic Education, Prescription Opioid Use. Follow up: Emergency Department; When: As needed; Reason: Worsening of condition. Follow up: Private Physician; When: 2 - 3 days; Reason: Recheck today's complaints, Continuance of care, Re-evaluation by your physician. Problem is new. Symptoms have improved. pm1
== END 2019-03-04 21:49 | disposition home or self-care (01) ==
LOC: ER 17:48
DX: N39.0 Urinary tract infection, site not specified (principal); R10.9 Unspecified abdominal pain; F17.210 Nicotine dependence, cigarettes, uncomplicated
CPT/HCPCS: 36415; 74177; 80048; 80076; 81003; 81015; 81025; 83690; 85025; 87077; 87086; 87088; 87186; 96361; 96365; 96375; 99284; J0696; J2405; J7030; Q9967

== ENCOUNTER 2019-07-29 05:23 | Emergency (ER) | payer OTHER ==
[2019-07-29] MEDS ORDERED: NA CHLORIDE 0.9% 1,000 ML ONE (06:02)
[2019-07-29] MEDS ORDERED: ONDANSETRON 4 MG/2 ML VIAL ONE (06:02)
[2019-07-29 06:26] LABS: Absolute Lymphocytes (CBC) 1.6 K/uL (0.7-4.9); Basophils % 0.7 % (0-1.3); Hematocrit 40.4 % (36.0-45.0); Lymphocytes % 30.6 % (15.3-44.8); RBC Red Blood Cell Count 4.37 M/uL (3.86-4.86)
[2019-07-29 06:43] LABS: Albumin 3.8 g/dL (3.4-5.0); Bilirubin Direct 0.2 mg/dL (0-0.2); Bilirubin Total 0.5 mg/dL (0.2-1.0); Potassium 3.5 mmol/L (3.5-5.1); Protein, Total 7.6 g/dL (6.4-8.2)
[2019-07-29 06:46] LABS: Urine Bacteria >50 /HPF (<20); Urine Culture Reflex Order NOT NEEDED; Urine Mucus HEAVY /HPF (NONE SEEN); Urine RBC NONE SEEN /HPF (NONE SEEN)
[2019-07-29 06:55] LABS: Urine Blood NEGATIVE (NEG); Urine Glucose NEGATIVE (NEG); Urine Protein NEGATIVE (NEG); Urine Specific Gravity >1.030 (1.005-1.030); Urine pH 5.5 (5.0-7.0)
--- NOTE | 2019-07-29 07:42 | RAD REPORT ---
EXAM DESCRIPTION: CT - Abdomen Pelvis W Contrast - 07/29/2019 7:21 am CLINICAL HISTORY: Abdominal pain COMPARISON: February 2019 TECHNIQUE: Computed axial tomography of the abdomen pelvis was obtained. 100 cc Isovue-300 was admin istered intravenously. Oral contrast was not requested which limits evaluation of bowel. All CT scans are performed using dose optimization technique as appropriate and may include automated exposure control or mA/KV adjustment according to patient size. FINDINGS: Fatty liver Spleen, pancreas, adrenal and right kidney appear unremarkable. 1 millimeter nonobstructing left nawaf l calculus There is no evidence of diverticulitis. An abnormal appendix is not seen 2.1 centimeter right ovarian cyst without significant free fluid IMPRESSION: 2.1 centimeter right ovarian cyst without significant free fluid 11
--- NOTE | 2019-07-29 07:54 | ER ---
Nurse's Notes [facility] Name: Sukhwinder Barry Age: 29 yrs Sex: Female : 1990 Arrival Date: 07/29/2019 Time: 05:26 Bed 14 Private MD: Diagnosis: Lower abdominal pain, unspecified;Dehydration;Urinary tract infection, site not specified Presentation: 07/29 05:30 Presenting complaint: Patient states: "I've been having constant abdominal pain since 2 cc3 weeks now. I also have headache, back ache and feeling of fatigability. I was seen in a clinic last Wednesday and was prescribed with antibiotics but I haven't started taking it yet". Transition of care: patient was not received from another setting of care. Onset of symptoms is unknown. Risk Assessment: Do you want to hurt yourself or someone else? Patient reports no desire to harm self or others. Initial Sepsis Screen: Does the patient meet any 2 criteria? HR > 90 bpm. No. Patient's initial sepsis screen is negative. Does the patient have a suspected source of infection? Yes: Acute abdominal pain. Care prior to arrival: None. 05:30 Method Of Arrival: Ambulatory cc3 05:30 Acuity: MASOUD 3 cc3 Triage Assessment: 05:30 General: Appears in no apparent distress. uncomfortable, Behavior is calm, cooperative, cc3 appropriate for age. Pain: Complains of pain in abdomen. EENT: No signs and/or symptoms were reported regarding the EENT system. Neuro: Level of Consciousness is awake, alert, obeys commands, Oriented to person, place, time, situation, Appropriate for age. Cardiovascular: Denies chest pain, Capillary refill < 3 seconds Patient's skin is warm and dry. Respiratory: Airway is patent Respiratory effort is even, unlabored, Respiratory pattern is regular, symmetrical. GI: Abdomen is round non-distended. : No signs and/or symptoms were reported regarding the genitourinary system. Derm: Skin is intact, is healthy with good turgor, Skin is pink, warm \\T\\ dry. normal. Musculoskeletal: Circulation, motion, and sensation intact. Range of motion: intact in all extremities. TUG HAND: 05:30 LMP was 3 weeks ago as per patient cc3 Historical: - Allergies: 05:30 No Known Allergies; cc3 - Home Meds: 05:30 bupoprion [Active]; lamotrigine oral oral [Active]; topiramate oral oral [Active]; cc3 - PMHx: 05:30 Anxiety; Bipolar disorder; Depression; Schizophrenia; cc3 05:30 Pancreatitis; kidney problems; cc3 - PSHx: 05:30 ; tied fallopian tubes; cc3 - Immunization history:: Adult Immunizations not up to date. - Social history:: Smoking status: Patient uses tobacco products, denies chronic smoking, but will smoke occasionally. - Ebola Screening: : No symptoms or risks identified at this time. - Family history:: not pertinent. - Hospitalizations: : No recent hospitalization is reported. Screenin:30 Abuse screen: Denies threats or abuse. Denies injuries from another. Nutritional cc3 screening: No deficits noted. Tuberculosis screening: No symptoms or risk factors identified. Fall Risk Ambulatory Aid- None/Bed Rest/Nurse Assist (0 pts). Gait- Normal/Bed Rest/Wheelchair (0 pts) Mental Status- Oriented to own ability (0 pts). Assessment: 05:30 GI: Bowel sounds present X 4 quads. Abd is soft X 4 quads Abdomen is tender to cc3 palpation X 4 quads. 06:29 Reassessment: Patient appears in no apparent distress at this time. Patient and/or cc3 family updated on plan of care and expected duration. Pain level reassessed. Patient is alert, oriented x 3, equal unlabored respirations, skin warm/dry/pink. 07:00 General: Appears in no apparent distress. uncomfortable, Behavior is calm, cooperative, hj appropriate for age. Pain: Complains of pain in abdomen. Neuro: Level of Consciousness is awake, alert, obeys commands, Oriented to person, place, time, situation, Appropriate for age. Cardiovascular: Capillary refill < 3 seconds Patient's skin is warm and dry. Respiratory: Airway is patent Respiratory effort is even, unlabored, Respiratory pattern is regular, symmetrical. : No signs and/or symptoms were reported regarding the genitourinary system. EENT: No signs and/or symptoms were reported regarding the EENT system. Derm: No signs and/or symptoms reported regarding the dermatologic system. Musculoskeletal: No signs and/or symptoms reported regarding the musculoskeletal system. 07:11 Reassessment: wheeled to CT;. hj Vital Signs: 05:30 BP 132 / 100; Pulse 120; Resp 18 S; Temp 98.3(O); Pulse Ox 100% on R/A; Weight 70.31 kg cc3 (R); Height 5 ft. 6 in. (167.64 cm) (R); Pain 8/10; 06:29 BP 120 / 68; Pulse 89; Resp 17 S; Pulse Ox 98% on R/A; cc3 07:52 BP 122 / 74; Pulse 85; Resp 18; Pulse Ox 100% on R/A; hj 05:30 Body Mass Index 25.02 (70.31 kg, 167.64 cm) cc3 ED Course: 05:26 Patient arrived in ED. ag3 05:30 Arm band placed on right wrist. Patient notified of wait time. cc3 05:30 Patient has correct armband on for positive identification. Bed in low position. Call cc3 light in reach. Side rails up X 1. Pulse ox on. NIBP on. 05:37 Lucio Girard MD is Attending Physician. rn 05:42 Shiloh Rodriguez is Primary Nurse. cc3 05:46 Triage completed. cc3 06:07 XRAY Chest (1 view) In Process Unspecified. EDMS 06:10 Inserted saline lock: 20 gauge in right antecubital area, using aseptic technique. cc3 Blood collected. 06:25 Radiology exam delayed due to lab results not completed at this time. (BUN/Creatinine) kw1 test not completed at this time. 07:00 Report given to SAMIA Petersen. cc3 07:10 Nicola Weber, RN is Primary Nurse. hj 07:21 CT completed. Patient tolerated procedure well. Patient moved back from CT. mw3 07:22 CT Abd/Pelvis - IV Contrast Only In Process Unspecified. EDMS 07:36 Sara Cabrera FNP-C [facility]. snw 07:59 No provider procedures requiring assistance completed. IV discontinued, intact, hj bleeding controlled, No redness/swelling at site. Pressure dressing applied. Administered Medications: 06:10 Drug: NS 0.9% 1000 ml Route: IV; Rate: 1000 ml; Site: right antecubital; cc3 08:01 Follow up: IV Status: Completed infusion; IV Intake: 1000ml hj 06:10 Drug: Zofran 4 mg Route: IVP; Site: right antecubital; cc3 06:28 Follow up: Response: No adverse reaction; Nausea is decreased cc3 Intake: 08:01 IV: 1000ml; Total: 1000ml. Outcome: 07:50 Discharge ordered by . snw 07:59 Discharged to home ambulatory. 07:59 Condition: stable 07:59 Discharge instructions given to patient, Instructed on discharge instructions, follow up and referral plans. medication usage, Demonstrated understanding of instructions, follow-up care, medications, Prescriptions given X 2. 08:00 Patient left the ED. Signatures: Dispatcher [employer] EDMS Sara Cabrera, ACTING TEACHER-C ACTING TEACHER-Csnw Lucio Girard MD MD rn Joaquin, Henry, RN RN hj Wilhelm, Kimberly kw1 Natalie Nascimento mw3 Shiloh Rodriguez cc3 Ambika Albarran ag3 Corrections: (The following items were deleted from the chart) 05:55 05:30 BP 132 / 100; Pulse 120bpm; Resp 18bpm; Spontaneous; Pulse Ox 100% RA; Temp 98.3F cc3 Oral; cc3 05:56 05:30 Immunization history: Adult Immunizations up to date, cc3 cc3 05:59 05:30 GI: Bowel sounds present X 4 quads. Abd is soft and non tender X 4 quads. cc3 cc3
--- NOTE | 2019-07-29 07:56 | EDPHYS ---
Physician Documentation [facility] Name: Sukhwinder Barry Age: 29 yrs Sex: Female : 1990 Arrival Date: 07/29/2019 Time: 05:26 Bed 14 Private MD: ED Physician Lucio Girard HPI: 07/29 05:51 This 29 yrs old Female presents to ER via Ambulatory with complaints of rn Abdominal Pain, Headache. 05:57 The patient presents with abdominal pain in the lower abdomen, in the left lower rn quadrant. Onset: The symptoms/episode began/occurred 2 week(s) ago. The symptoms do not radiate. Associated signs and symptoms: Pertinent positives: anorexia, nausea, Pertinent negatives: fever, vaginal discharge, vomiting. The symptoms are described as achy, crampy. Modifying factors: The symptoms are alleviated by nothing. Severity of pain: At its worst the pain was mild in the emergency department the pain is unchanged. The patient has not experienced similar symptoms in the past. Reports began 2 weeks ago, feeling lower abd cramping, assoc with nausea and decreased appetite, now having mid back pain. Seen by PCP, told maybe viral enteritis. Did not get better, then noticed thin vaginal discharge, went to [facility], found a 2 week old tampon with some discharge, diagnosed her with BV and put her on flagyl. She has not taken the abx because hasn't had an appetite. Denies vaginal discharge now, no fever. Also reports cough. . 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 - Social history:: Smoking status: Patient uses tobacco products, denies chronic smoking, but will smoke occasionally. - Ebola Screening: : No symptoms or risks identified at this time. - Family history:: not pertinent. - Hospitalizations: : No recent hospitalization is reported. ROS: 05:57 Constitutional: Negative for fever, chills, and weight loss, Eyes: Negative for injury, rn pain, redness, and discharge, Neck: Negative for injury, pain, and swelling, Cardiovascular: Negative for chest pain, palpitations, and edema, Respiratory: Negative for shortness of breath, cough, wheezing, and pleuritic chest pain, Abdomen/GI: Negative for diarrhea, and constipation, MS/Extremity: Negative for injury and deformity, Skin: Negative for injury, rash, and discoloration, Neuro: Negative for numbness, tingling, and seizure. Exam: 05:57 Constitutional: This is a well developed, well nourished patient who is awake, alert, rn and in no acute distress. Appears disheveled and anxious. Head/Face: Normocephalic, atraumatic. Eyes: Pupils equal round and reactive to light, extra-ocular motions intact. Lids and lashes normal. Conjunctiva and sclera are non-icteric and not injected. Cornea within normal limits. Periorbital areas with no swelling, redness, or edema. ENT: dry MM Cardiovascular: tachycardic, regular, no murmur Respiratory: No increased work of breathing, no retractions or nasal flaring. Abdomen/GI: soft, mild periumbilical tenderness, no rebound/masses Skin: Warm, dry MS/ Extremity: Pulses equal, no cyanosis. Neurovascular intact. Full, normal range of motion. Equal circumference. Neuro: Awake and alert, GCS 15, oriented to person, place, time, and situation. Cranial nerves II-XII grossly intact. Motor strength 5/5 in all extremities. Sensory grossly intact. Cerebellar exam normal. Normal gait. Vital Signs: 05:30 BP 132 / 100; Pulse 120; Resp 18 S; Temp 98.3(O); Pulse Ox 100% on R/A; Weight 70.31 kg cc3 (R); Height 5 ft. 6 in. (167.64 cm) (R); Pain 8/10; 06:29 BP 120 / 68; Pulse 89; Resp 17 S; Pulse Ox 98% on R/A; cc3 07:52 BP 122 / 74; Pulse 85; Resp 18; Pulse Ox 100% on R/A; hj 05:30 Body Mass Index 25.02 (70.31 kg, 167.64 cm) cc3 MDM: 05:37 Patient medically screened. rn 07:48 Data reviewed: vital signs, nurses notes. Data interpreted: Pulse oximetry: on room air snw is 98 %. Interpretation: normal. Counseling: I had a detailed discussion with the patient and/or guardian regarding: the historical points, exam findings, and any diagnostic results supporting the discharge/admit diagnosis, lab results, radiology results, the need for outpatient follow up, to return to the emergency department if symptoms worsen or persist or if there are any questions or concerns that arise at home. Special discussion: Based on the patient's Hx, exam, and Dx evaluation, there is no indication for emergent surgery or inpatient Tx. It is understood by the patient/guardian that if the Sx's persist or worsen they need to return immediately for re-evaluation. Based on the history and exam findings, there is no indication for further emergent testing or inpatient evaluation. I discussed with the patient/guardian the need to see the primary care provider for further evaluation of the symptoms. 07/29 05:49 Order name: Basic Metabolic Panel; Complete Time: 06:56 rn 07/29 05:49 Order name: CBC with Diff; Complete Time: 06:56 rn 07/29 05:49 Order name: Creatinine for Radiology; Complete Time: 06:56 rn 07/29 05:49 Order name: Hepatic Function; Complete Time: 06:56 rn 07/29 05:50 Order name: Lipase; Complete Time: 06:56 rn 07/29 05:50 Order name: Urine Microscopic Only; Complete Time: 06:56 rn 07/29 05:50 Order name: IV Saline Lock; Complete Time: 06:16 rn 07/29 05:50 Order name: Labs collected and sent; Complete Time: 06:17 rn 07/29 05:50 Order name: CT Abd/Pelvis - IV Contrast Only; Complete Time: 07:46 rn 07/29 05:50 Order name: XRAY Chest (1 view) rn 07/29 06:38 Order name: Urine Dipstick--Ancillary (enter results); Complete Time: 06:56 ar5 07/29 06:38 Order name: Urine --Ancillary (enter results); Complete Time: 06:56 [facility] 07/29 05:50 Order name: Urine Test (obtain specimen); Complete Time: 06:28 rn 07/29 05:50 Order name: Urine Dipstick-Ancillary (obtain specimen); Complete Time: 06:28 rn Administered Medications: 06:10 Drug: NS 0.9% 1000 ml Route: IV; Rate: 1000 ml; Site: right antecubital; cc3 08:01 Follow up: IV Status: Completed infusion; IV Intake: 1000ml 06:10 Drug: Zofran 4 mg Route: IVP; Site: right antecubital; cc3 06:28 Follow up: Response: No adverse reaction; Nausea is decreased cc3 Disposition: 20:34 Co-signature as Attending Physician, Lucio Girard MD. rn Disposition: 07/29/19 07:50 Discharged to Home. Impression: Lower abdominal pain, unspecified, Dehydration, Urinary tract infection, site not specified. - Condition is Stable. - Discharge Instructions: Abdominal Pain, Adult, Dehydration, Adult, Urinary Tract Infection, Adult, Rehydration, Adult. - Prescriptions for Clindamycin HCl 300 mg Oral Capsule - take 1 capsule by ORAL route every 8 hours for 10 days; 30 capsule. promethazine 25 mg Oral Tablet - take 1 tablet by ORAL route every 6 hours As needed; 10 tablet. - Medication Reconciliation Form, Thank You Letter, Antibiotic Education, Prescription Opioid Use, Work release form form. - Follow up: Private Physician; When: 2 - 3 days; Reason: Recheck today's complaints, Continuance of care, Re-evaluation by your physician. Follow up: Emergency Department; When: As needed; Reason: Recheck today's complaints, Continuance of care, Re-evaluation by your physician. Signatures: Dispatcher [employer] EDOR Sara Cabrera, DARIA-C NUT GRINDER-Cs[employer] Lucio Girard MD MD rn Joaquin, Henry, RN RN hj Cordel, Charlene cc3 Corrections: (The following items were deleted from the chart) 05:56 05:30 Immunization history: Adult Immunizations up to date, cc3 cc3 07:52 07:50 07/29/2019 07:50 Discharged to Home. Impression: Lower abdominal pain, snw unspecified; Dehydration. Condition is Stable. Forms are Medication Reconciliation Form, Thank You Letter, Antibiotic Education, Prescription Opioid Use. Follow up: Private Physician; When: 2 - 3 days; Reason: Recheck today's complaints, Continuance of care, Re-evaluation by your physician. Follow up: Emergency Department; When: As needed; Reason: Recheck today's complaints, Continuance of care, Re-evaluation by your physician. chalo 08:00 07:52 07/29/2019 07:50 Discharged to Home. Impression: Lower abdominal pain, hj unspecified; Dehydration; Urinary tract infection, site not specified. Condition is Stable. Discharge Instructions: Abdominal Pain, Adult, Dehydration, Adult, Urinary Tract Infection, Adult, Rehydration, Adult. Prescriptions for Clindamycin HCl 300 mg Oral Capsule - take 1 capsule by ORAL route every 8 hours for 10 days; 30 capsule. and Forms are Medication Reconciliation Form, Thank You Letter, Antibiotic Education, Prescription Opioid Use. Follow up: Private Physician; When: 2 - 3 days; Reason: Recheck today's complaints, Continuance of care, Re-evaluation by your physician. Follow up: Emergency Department; When: As needed; Reason: Recheck today's complaints, Continuance of care, Re-evaluation by your physician. chalo
--- NOTE | 2019-07-29 10:09 | RAD REPORT ---
EXAM DESCRIPTION: [facility] Single View07/29/2019 6:06 am CLINICAL HISTORY: cough COMPARISON: 10/2018 FINDINGS: The lungs appear clear of acute infiltrate. The heart is normal size IMPRESSION: No acute abnormalities displayed
== END 2019-07-29 08:00 | disposition home or self-care (01) ==
LOC: ER 05:23
DX: N39.0 Urinary tract infection, site not specified (principal); E86.0 Dehydration; F41.8 Other specified anxiety disorders
CPT/HCPCS: 96361; 85025; 80048; 36415; 81025; 80076; 83690; 74177; 71045; 96374; 99284; Q9967; J7030; J2405; 81003; 81015

== ENCOUNTER 2021-10-01 11:31 | Emergency (ER) | payer OTHER ==
[2021-10-01] MEDS ORDERED: MORPHINE 4 MG/ML SYR ONE (12:48)
[2021-10-01] MEDS ORDERED: NA CHLORIDE 0.9% 1,000 ML ONE (12:48)
[2021-10-01] MEDS ORDERED: ONDANSETRON 4 MG/2 ML VIAL ONE (12:48)
[2021-10-01 12:56] LABS: Absolute Lymphocytes (CBC) 1.7 K/uL (0.7-4.9); Basophils % 0.6 % (0-1.3); Hematocrit 45.8 % (36.0-45.0); Lymphocytes % 18.5 % (15.3-44.8); MPV 8.9 fL (7.6-11.3)
[2021-10-01 13:07] LABS: Urine Blood Trace-intact (Negative); Urine Glucose Negative (Negative); Urine Protein Negative (Negative); Urine Specific Gravity 1.025 (1.005-1.030)
[2021-10-01 13:12] LABS: ALT/SGPT 54 U/L (12-78); AST/SGOT 62 U/L (15-37); Alkaline Phosphatase 125 U/L (45-117); BUN Blood Urea Nitrogen 7 mg/dL (7-18); Bicarbonate 21 mmol/L (21-32); Bilirubin Direct 0.1 mg/dL (0-0.2); Bilirubin Total 0.5 mg/dL (0.2-1.0); Glucose Level 87 mg/dL (74-106); Lipase 33 U/L (73-393); Potassium 3.2 mmol/L (3.5-5.1); Protein, Total 8.6 g/dL (6.4-8.2); Sodium Level 139 mmol/L (136-145)
[2021-10-01 14:03] LABS: Urine Specific Gravity/Preg 1.025 (1.005-1.030)
--- NOTE | 2021-10-01 14:09 | RAD REPORT ---
EXAM DESCRIPTION: CTAbdomen Pelvis W Contrast - 10/01/2021 1:44 pm CLINICAL HISTORY: ABD PAIN COMPARISON: Abdomen Pelvis W Contrast dated 07/29/2019; Abdomen Pelvis W Contrast dated 03/04/2019; Abdomen Pelvis W Contrast dated 03/01/2019 TECHNIQUE: CT of the abdomen and pelvis was performed. All CT scans are performed using dose optimization technique as appropriate and may include automated exposure control or mA/KV adjustment according to patient size. FINDINGS: Lower chest: No acute abnormality. Liver: No acute abnormality or suspicious lesions. Biliary: No biliary ductal dilatation. Stomach: No significant focal abnormality. Duodenum: No significant focal abnormality. Pancreas: No significant abnormality. Spleen: No significant abnormality. Adrenal: No suspicious lesions. Kidney/ureter: No hydronephrosis. Nonobstructing 4 mm stone in the left kidney. Retroperitoneum: No retroperitoneal adenopathy. Vascular: No aneurysm. Bowel: No significant focal abnormality. No appendicitis. Peritoneum: No ascites or free air. Bladder: Grossly unremarkable. Reproductive: No adnexal masses. Bones: No acute fracture. Other: n/a IMPRESSION: No acute intra-abdominal or pelvic finding. Nonobstructive left nephrolithiasis.
[2021-10-01] MEDS ORDERED: METOCLOPRAMIDE 10 MG/2mL INJ ONE (14:55)
[2021-10-01] MEDS ORDERED: LORazepam 2 MG/ML VIAL ONE (14:56)
[2021-10-01] MEDS ORDERED: DIPHENHYDRAMINE 50 MG/ML VIAL ONE (14:56)
[2021-10-01] MEDS ORDERED: NA CHLORIDE 0.9% 250 ML ONE (14:57)
[2021-10-01] MEDS ORDERED: FENTANYL CITR 100 MCG/2 ML ONE (14:57)
[2021-10-01] MEDS ORDERED: FAMOTIDINE 20 MG/2 ML VIAL IV ONE (14:57)
--- NOTE | 2021-10-01 16:40 | EDPHYS ---
Physician Documentation [facility] Name: Sukhwinder Barry Age: 31 yrs Sex: Female : 1990 Arrival Date: 10/01/2021 Time: 11:32 Bed 18 Private MD: ED Physician Lucio Girard HPI: 10/01 12:00 This 31 yrs old Female presents to ER via Ambulatory with complaints of jmm Headache, Abdominal Pain, Vomiting, Back Pain. 12:00 The patient presents with abdominal pain. Onset: The symptoms/episode began/occurred jmm gradually, 3 day(s) ago. The symptoms do not radiate. Associated signs and symptoms: Pertinent positives: nausea and vomiting, headache. The symptoms are described as achy, intermittent. Modifying factors: The symptoms are alleviated by nothing, the symptoms are aggravated by vomiting. The patient has experienced similar episodes in the past. 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 Flu vaccine status is unknown. - Social history:: Smoking status: Patient reports the use of cigarette tobacco products, smokes one pack cigarettes per day. ROS: 12:00 Constitutional: Negative for fever, chills, and weight loss, Cardiovascular: Negative jmm for chest pain, palpitations, and edema, Respiratory: Negative for shortness of breath, cough, wheezing, and pleuritic chest pain. 12:00 Abdomen/GI: Positive for abdominal pain, nausea and vomiting. 12:00 Neuro: Positive for headache. 12:00 All other systems are negative. Exam: 12:00 Constitutional: This is a well developed, well nourished patient who is awake, alert, jmm and in no acute distress. Head/Face: atraumatic. Eyes: EOMI, no conjunctival erythema appreciated ENT: Moist Mucus Membranes Neck: Trachea midline, Supple Chest/axilla: Normal chest wall appearance and motion. Cardiovascular: Regular rate and rhythm. No edema appreciated Respiratory: Normal respirations, no respiratory distress appreciated 12:00 Back: Normal ROM Skin: General appearance color normal MS/ Extremity: Moves all extremities, no obvious deformities appreciated, no edema noted to the lower extremities Neuro: Awake and alert, normal gait Psych: Behavior is normal, Mood is normal, Patient is cooperative and pleasant 12:00 Abdomen/GI: Inspection: abdomen appears normal, Bowel sounds: normal, Palpation: soft, mild abdominal tenderness, in all quadrants. Vital Signs: 11:41 BP 138 / 91; Pulse 110; Resp 18; Temp 98.6; Pulse Ox 98% ; Weight 81.65 kg; Height 5 ll1 ft. 6 in. (167.64 cm); Pain 9/10; 12:52 BP 129 / 83; Pulse 97; Resp 18; Pulse Ox 96% ; sl2 13:15 BP 119 / 74; Pulse 89; Resp 18; Temp 98.2; Pulse Ox 96% on R/A; sl2 14:00 BP 115 / 76; Pulse 85; Resp 18; Pulse Ox 97% on R/A; sl2 15:00 BP 112 / 75; Pulse 82; Resp 18; Temp 98.4(O); Pulse Ox 97% on R/A; sl2 11:41 Body Mass Index 29.05 (81.65 kg, 167.64 cm) ll1 MDM: 12:00 Patient medically screened. [facility] 16:37 Data reviewed: vital signs, nurses notes. Counseling: I had a detailed discussion with scarlett the patient and/or guardian regarding: the historical points, exam findings, and any diagnostic results supporting the discharge/admit diagnosis, lab results, radiology results, the need for outpatient follow up, to return to the emergency department if symptoms worsen or persist or if there are any questions or concerns that arise at home. ED course: Patient is alert and nontoxic in appearance in the ED. Patient states feeling better after antiemetics and pain medication. Patient advised to follow-up PCP and otherwise given strict return precautions. Patient understood agrees plan of care.. 10/01 12:00 Order name: Basic Metabolic Panel; Complete Time: 13:21 [facility] 10/01 12:00 Order name: CBC with Diff; Complete Time: 13:21 [facility] 10/01 12:00 Order name: Hepatic Function; Complete Time: 13:21 [facility] 10/01 12:00 Order name: Lipase; Complete Time: 13:21 [facility] 10/01 13:07 Order name: Urine Dipstick-Ancillary; Complete Time: 13:21 [facility] 10/01 13:07 Order name: Urine --Ancillary (enter results) 10/01 13:08 Order name: Urine --Ancillary [facility] 10/01 13:22 Order name: CT Abd/Pelvis - IV Contrast Only; Complete Time: 14:16 [facility] 10/01 12:00 Order name: IV Saline Lock; Complete Time: 12:46 [facility] 10/01 12:00 Order name: Labs collected and sent; Complete Time: 12:46 [facility] 10/01 12:00 Order name: Urine Dipstick-Ancillary (obtain specimen); Complete Time: 13:09 [facility] 10/01 12:00 Order name: Urine Test (obtain specimen); Complete Time: 13:09 [facility] Administered Medications: 12:48 Drug: NS 0.9% 1000 ml Route: IV; Rate: 1 bolus; Site: left antecubital; sl2 13:09 Follow up: Response: No adverse reaction sl2 12:48 Drug: Zofran (Ondansetron) 4 mg Route: IVP; Site: left antecubital; sl2 13:08 Follow up: Response: No adverse reaction sl2 12:52 Drug: morphine 4 mg Route: IVP; Site: left antecubital; sl2 13:09 Follow up: Response: No adverse reaction sl2 14:54 Drug: diphenhydrAMINE 12.5 mg Route: IVP; Site: left antecubital; sl2 15:32 Follow up: Response: No adverse reaction sl2 14:58 Drug: Pepcid (famotidine) 20 mg Route: IVP; Site: left antecubital; sl2 15:32 Follow up: Response: No adverse reaction sl2 15:02 Drug: Ativan (LORazepam) 1 mg Route: IVP; Site: left antecubital; sl2 15:32 Follow up: Response: No adverse reaction sl2 15:06 Drug: fentaNYL (PF) 25 mcg Route: IVP; Site: left antecubital; sl2 15:33 Follow up: Response: No adverse reaction; Pain is decreased sl2 15:10 Drug: NS 0.9% 250 ml Route: IV; Rate: bolus; Site: left antecubital; sl2 15:30 Follow up: Response: No adverse reaction sl2 15:10 Drug: Reglan (metoCLOPramide) 20 mg Route: IVP; Site: left antecubital; sl2 15:29 Follow up: Response: No adverse reaction sl2 Disposition: 18:30 Co-signature as Attending Physician, Lucio Girard MD I agree with the assessment and rn plan of care. Attestation: The patient's history, exam findings, diagnostics, and a summary of any interventions or procedures was reviewed in detail with Jhony CASTILLO. Disposition Summary: 10/01/21 16:39 Discharge Ordered Location: Home [facility] Condition: Stable [facility] Diagnosis - Vomiting m - Other abdominal pain [facility] - Low back pain [facility] Followup: [facility] - With: Alonso Delgado MD - When: 2 - 3 days - Reason: Recheck today's complaints, Continuance of care, Re-evaluation by your physician Discharge Instructions: - Discharge Summary Sheet [facility] - Abdominal Pain, Adult jm - Vomiting, Adult [facility] Forms: - Medication Reconciliation Form [facility] - Thank You Letter [facility] - Antibiotic Education [facility] - Prescription Opioid Use [facility] Prescriptions: - ondansetron 4 mg Oral tablet,disintegrating - take 1 tablet by ORAL route every 8 hours for 2 days; 20 tablet; Refills: 0, [facility] Product Selection Permitted - Pepcid 20 mg Oral Tablet - take 1 tablet by ORAL route every 12 hours for 10 days; 20 tablet; Refills: 0, [facility] Product Selection Permitted - dicyclomine 20 mg Oral Tablet - take 1 tablet by ORAL route 4 times per day; 30 tablet; Refills: 0, Product [facility] Selection Permitted Signatures: Dispatcher [employer] Jhony Luna PA PA [facility] Lucio Girard MD MD rn Lewis, Lynsay RN RN ll1 Jennifer Valdes RN RN sl2
--- NOTE | 2021-10-01 16:40 | ER ---
Nurse's Notes [facility] Name: Sukhwinder Barry Age: 31 yrs Sex: Female : 1990 Arrival Date: 10/01/2021 Time: 11:32 Bed 18 Private MD: Diagnosis: Vomiting;Other abdominal pain;Low back pain Presentation: 10/01 11:41 Chief complaint: Patient states: Low back pain for over 1 month. Mid abd pain with N/V ll1 for 3 days. No dysuria. RESENDIZ's also, feel feverish at home. Coronavirus screen: Vaccine status: Patient reports being unvaccinated. Client denies travel out of the [place] in the last 14 days. At this time, the client does not indicate any symptoms associated with coronavirus-19. Ebola Screen: Patient denies travel to an Ebola-affected area in the 21 days before illness onset. Initial Sepsis Screen: Does the patient meet any 2 criteria? HR > 90 bpm. No. Patient's initial sepsis screen is negative. Does the patient have a suspected source of infection? Yes: Acute abdominal pain. Risk Assessment: Do you want to hurt yourself or someone else? Patient reports no desire to harm self or others. Onset of symptoms was August 29, 2021. 11:41 Method Of Arrival: Ambulatory ll1 11:41 Acuity: MASOUD 3 ll1 Triage Assessment: 12:30 Headache History: Denies prior headaches. General: Appears in no apparent distress. sl2 distressed, Behavior is calm, cooperative. Pain: Also complains of. 12:30 Pain: Pain currently is 7 out of 10 on a pain scale. Pain began gradually. 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 Flu vaccine status is unknown. - Social history:: Smoking status: Patient reports the use of cigarette tobacco products, smokes one pack cigarettes per day. Screenin:00 Nutritional screening: No deficits noted. Tuberculosis screening: No symptoms or risk sl2 factors identified. Never had TB. Possible symptoms: None Risk factors: None. Fall Risk None identified. 15:00 Abuse screen: Denies threats or abuse. sl2 Assessment: 12:00 General: Appears uncomfortable, well developed, Behavior is calm, cooperative, sl2 appropriate for age. 12:00 Pain: Complains of pain in back and abdomen. Neuro: No deficits noted. Cardiovascular: sl2 No deficits noted. Respiratory: No deficits noted. GI: Reports lower abdominal pain, nausea, vomiting, Patient currently denies diarrhea. GI: Abdomen is flat, Bowel sounds present X 4 quads. Abd is soft and non tender X 4 quads. : No deficits noted. No signs and/or symptoms were reported regarding the genitourinary system. EENT: No deficits noted. No signs and/or symptoms were reported regarding the EENT system. Derm: No deficits noted. Musculoskeletal: No deficits noted. No signs and/or symptoms reported regarding the musculoskeletal system. Vital Signs: 11:41 BP 138 / 91; Pulse 110; Resp 18; Temp 98.6; Pulse Ox 98% ; Weight 81.65 kg; Height 5 ll1 ft. 6 in. (167.64 cm); Pain 9/10; 12:52 BP 129 / 83; Pulse 97; Resp 18; Pulse Ox 96% ; sl2 13:15 BP 119 / 74; Pulse 89; Resp 18; Temp 98.2; Pulse Ox 96% on R/A; sl2 14:00 BP 115 / 76; Pulse 85; Resp 18; Pulse Ox 97% on R/A; sl2 15:00 BP 112 / 75; Pulse 82; Resp 18; Temp 98.4(O); Pulse Ox 97% on R/A; sl2 11:41 Body Mass Index 29.05 (81.65 kg, 167.64 cm) ll1 ED Course: 11:32 Patient arrived in ED. as 11:44 Triage completed. ll1 11:45 Arm band placed on Patient placed in an exam room, on a stretcher. 1 11:47 Jhony Chavez PA is PHCP. [facility] 11:47 Lucio Girard MD is Attending Physician. [facility] 12:00 Patient has correct armband on for positive identification. Placed in gown. Bed in low sl2 position. Call light in reach. Warm blanket given. 12:00 No provider procedures requiring assistance completed. Inserted saline lock: 20 gauge sl2 in left antecubital area, using aseptic technique. Patient maintains SpO2 saturation greater than 95% on room air. 12:33 Jennifer Valdes, SAMIA is Primary Nurse. sl2 13:[address] via wheelchair. sl2 13:44 CT Abd/Pelvis - IV Contrast Only In Process Unspecified. EDMS 16:38 Alonso Delgado MD is Referral Physician. jmm 18:24 IV discontinued, intact, bleeding controlled, No redness/swelling at site. Pressure sl2 dressing applied. Administered Medications: 12:48 Drug: NS 0.9% 1000 ml Route: IV; Rate: 1 bolus; Site: left antecubital; sl2 13:09 Follow up: Response: No adverse reaction sl2 12:48 Drug: Zofran (Ondansetron) 4 mg Route: IVP; Site: left antecubital; sl2 13:08 Follow up: Response: No adverse reaction sl2 12:52 Drug: morphine 4 mg Route: IVP; Site: left antecubital; sl2 13:09 Follow up: Response: No adverse reaction sl2 14:54 Drug: diphenhydrAMINE 12.5 mg Route: IVP; Site: left antecubital; sl2 15:32 Follow up: Response: No adverse reaction sl2 14:58 Drug: Pepcid (famotidine) 20 mg Route: IVP; Site: left antecubital; sl2 15:32 Follow up: Response: No adverse reaction sl2 15:02 Drug: Ativan (LORazepam) 1 mg Route: IVP; Site: left antecubital; sl2 15:32 Follow up: Response: No adverse reaction sl2 15:06 Drug: fentaNYL (PF) 25 mcg Route: IVP; Site: left antecubital; sl2 15:33 Follow up: Response: No adverse reaction; Pain is decreased sl2 15:10 Drug: NS 0.9% 250 ml Route: IV; Rate: bolus; Site: left antecubital; sl2 15:30 Follow up: Response: No adverse reaction sl2 15:10 Drug: Reglan (metoCLOPramide) 20 mg Route: IVP; Site: left antecubital; sl2 15:29 Follow up: Response: No adverse reaction sl2 Outcome: 12:00 Discharged to home sl2 12:00 Condition: stable 12:00 Discharge instructions given to patient, Instructed on discharge instructions, follow up and referral plans. medication usage, Demonstrated understanding of instructions, follow-up care, medications, Prescriptions given X 2. 16:39 Discharge ordered by MD. pantoja 18:24 Patient left the ED. sl2 Signatures: Dispatcher [employer] EDMS Jhony Chavez PA PA jmm Martinez, Amelia as Lewis, Lynsay, RN RN 1 Jennifer Valdes RN RN sl2
[2021-10-01 19:52] VITALS: O2SAT 97
[2021-10-01 19:53] VITALS: BP 112/75; TEMP 98.4
== END 2021-10-01 18:24 | disposition home or self-care (01) ==
LOC: ER 11:31
DX: R10.9 Unspecified abdominal pain (principal); R11.10 Vomiting, unspecified; M54.50 Low back pain, unspecified; F17.210 Nicotine dependence, cigarettes, uncomplicated
CPT/HCPCS: 85025; 80048; 36415; 81025; 80076; 81003; 83690; 74177; 96375; 96374; 99285; Q9967; J2765; J1200; J3010; J7050; J7030; J2405

== ENCOUNTER 2023-04-09 15:42 | Emergency (ER) | payer SELFPAY ==
[2023-04-09] MEDS ORDERED: NA CHLORIDE 0.9% 1,000 ML ONE (16:09)
[2023-04-09 16:23] LABS: Absolute Lymphocytes (CBC) 2.2 K/uL (0.7-4.9); Hematocrit 43.2 % (36.0-45.0); Lymphocytes % 18.9 % (15.3-44.8); MCV 95.2 fL (80-100); MPV 8.3 fL (7.6-11.3); RBC Red Blood Cell Count 4.54 M/uL (3.86-4.86)
[2023-04-09 16:46] LABS: Albumin 3.4 g/dL (3.4-5.0); Bilirubin Total 0.4 mg/dL (0.2-1.0); Potassium 3.4 mEq/L (3.5-5.1); Protein, Total 7.8 g/dL (6.4-8.2); Thyroid Stimulating Hormone 0.368 uIU/mL (0.358-3.740)
--- OUTSIDE RECORDS SUMMARY | 2023-04-09 16:53 | XMS REPORT | Continuity of Care Document ---
:1990 Author Organization [facility] t Address [address] [place] [address] Care Team Providers Name Role Phone LIONEL GRIER Primary Care Physician FOREIGN VALERA Attending Clinician Unavailable Payers Payer Name Policy Type Policy Number Effective Date Expiration Date S ource GENERIC OTHER [id number] 2021 00:00:00 Problems This patient has no known problems. Allergies, Adverse Reactions, Alerts Allergy Allergy Status Severity Reaction(s) Onset Inactive Treating Comm ents Source Name Type Date Date Clinician No Known DA Active [facility] Allergie 08-23 Clear s 00:00: Hough 00 [facility] Social History Social Habit Start Date Stop Date Quantity Comments Source History of tobacco Cigarette Smoker [facility] use Exposure to Not sure [facility] SARS-CoV-2 (event) Cigarettes smoked 2022-02-09 2022-02-09 [facility] current (pack per 00:00:00 00:00:00 day) - Reported Tobacco use and 2022-02-09 2022-02-09 Smokeless tobacco [facility] exposure 00:00:00 00:00:00 non-user Alcohol intake 2022-02-09 2022-02-09 Current drinker of [facility] 00:00:00 00:00:00 alcohol (finding) Sex Ass[birth year] At [birth year] [facility] 00:00:00 00:00:00 Smoking Status Start Date Stop Date Source Smokes tobacco daily 2022-02-09 00:00:00 [facility] Medications Ordered Filled Start Stop Current Ordering Indication Dosage Frequency Signature Comments Components Source Medication Medication Date Date Medication? Clinician (SIG) Name Name Sulfamethox Yes Take by [facility] azole-Trime 3-14 mouth. Health thoprim 13:47: (BACTRIM 42 PO) meloxicam 3- No [id number] 15mg QD Take 1 [facility] (Mobic) 15 3-14 03-15 [id number] tablet (15 Health MG tablet 00:00: 04:59 mg total) 00 :00 by mouth 1 (one) time each day. buPROPion Yes 150mg Take 150 UT XL 3-07 mg by [facility] (Wellbutrin 00:00: mouth 1 XL) 150 MG 00 (one) time 24 hr each day tablet in the morning. phentermine Yes 37.5mg QD Take 37.5 [facility] (Adipex-P) 3-01 mg by [facility] 37.5 MG 00:00: mouth 1 tablet 00 (one) time each day. QUEtiapine Yes 100mg Take 100 [facility] (SEROquel) 2-26 mg by [facility] 100 MG 00:00: mouth tablet 00 every night. topiramate 2020-11 Yes 1{tbl} QD Take 1 UT 50 MG 2-06 tablet by [facility] tablet 00:00: mouth 1 00 (one) time each day. Vital Signs Vital Name Observation Time Observation Value Comments Source Body height 2022-02-09 18:45:00 167.6 cm [facility] Body weight 2022-02-09 18:45:00 79.379 kg [facility] BMI 2022-02-09 18:45:00 28.25 kg/m2 [facility] Procedures This patient has no known procedures. Encounters Start End Encounter Admission Attending Care Care Encounter Source Date/Time Date/Time Type Type Clinicians Facility Department ID 2022-07-14 Outpatient [facility] [id number] [place] 03:58:18 [id number] [facility] 2022-03-07 Outpatient [facility] [id number] [place] 03:19:39 [place] [id number] [facility] 2022-03-06 Outpatient [facility] [id number] [place] 09:40:30 [id number] [facility] 2022-02-09 [place] [id number] [place] 14:01[facility] 2022-02-05 Outpatient [facility] [id number] [place] 17:32:02 [facility] 2022-02-09 2022-02-09 Office JULY Valera [facility] [id number] [place] 13:30:00 14:01:50 Visit Foreign HOWE [id number] H [facility] [id number] [address] 1 [id number] Results Test Description Test Time Test Comments Results Result Comments Source BASIC METABOLIC PANEL 2019-02-08 07:55:00 Test Item Value Reference Range Interpretation Comme nts SODIUM (test code = NA) 138 mmol/L 134-147 N POTASSIUM (test code = K) 3.4 mmol/L 3.4-5.0 N CHLORIDE (test code = CL) 109 mmol/L 100-108 H CARBON DIOXIDE (test code = CO2) 19 mmol/L 21-32 L ANION GAP (test code = GAP) 10.0 GAP calc 4.0-15.0 N GLUCOSE (test code = GLU) 95 MG/DL 70-110 N BLOOD UREA NITROGEN (test code = BUN) 9 MG/DL 7-18 N GLOMERULAR FILTRATION RATE (test code = GFR) >=60 max estimate estG FR >60 CREATININE (test code = CREAT) 0.7 MG/DL 0.6-1.0 N CALCIUM (test code = CA) 9.0 MG/DL 8.5-10.1 N HEPATIC FUNCTION [id number] 07:55:00 Test Item Value Reference Range Interpretation Comments TOTAL PROTEIN (test code = PROT) 8.6 G/DL 6.4-8.2 H ALBUMIN (test code = ALB) 4.2 G/DL 3.4-5.0 N BILIRUBIN TOTAL (test code = BILT) 0.50 MG/DL 0.2-1.2 N BILIRUBIN DIRECT (test code = 0.20 MG/DL 0.00-0.30 N BILD) BILIRUBIN INDIRECT (test code = 0.30 MG/DL 0.2-1.2 N BILIND) SGOT/AST (test code = AST) 64 Unit/L 15-37 H SGPT/ALT (test code = ALT) 71 Unit/L 12-78 N ALKALINE PHOSPHATASE TOTAL (test 135 Unit/L 45-117 H code = ALKP) [id number] 07:55:00 Test Item Value Reference Range Interpretation Comments LIPASE (test code = LIP) 98 Unit/L 114-286 L BASIC METABOLIC [id number] 07:48:00 Test Item Value Reference Range Interpretation Comments SODIUM (test code = NA) 138 mmol/L 134-147 N POTASSIUM (test code = K) 3.4 mmol/L 3.4-5.0 N CHLORIDE (test code = CL) 109 mmol/L 100-108 H CARBON DIOXIDE (test code = 19 mmol/L 21-32 L CO2) ANION GAP (test code = GAP) 10.0 GAP calc 4.0-15.0 N GLUCOSE (test code = GLU) 95 MG/DL 70-110 N BLOOD UREA NITROGEN (test code 9 MG/DL 7-18 N = BUN) GLOMERULAR FILTRATION RATE estGFR >60 (test code = GFR) CREATININE (test code = CREAT) MG/DL 0.6-1.0 CALCIUM (test code = CA) 9.0 MG/DL 8.5-10.1 N HEPATIC FUNCTION [id number] 07:48:00 Test Item Value Reference Range Interpretation Comments TOTAL PROTEIN (test code = PROT) G/DL 6.4-8.2 ALBUMIN (test code = ALB) G/DL 3.4-5.0 BILIRUBIN TOTAL (test code = BILT) MG/DL 0.2-1.2 BILIRUBIN DIRECT (test code = BILD) MG/DL 0.00-0.30 BILIRUBIN INDIRECT (test code = MG/DL 0.2-1.2 BILIND) SGOT/AST (test code = AST) Unit/L 15-37 SGPT/ALT (test code = ALT) Unit/L 12-78 ALKALINE PHOSPHATASE TOTAL (test code Unit/L 45-117 = ALKP) [id number] 07:48:00 Test Item Value Reference Range Interpretation Comments LIPASE (test code = LIP) Unit/L 114-286 CBC W/AUTO [id number] 07:42:00 Test Item Value Reference Range Interpretation Comments WHITE BLOOD CELL (test code = 7.1 K/mm3 3.5-11.0 N WBC) RED BLOOD CELL (test code = RBC) 4.71 M/mm3 4.70-6.10 N HEMOGLOBIN (test code = HGB) 15.0 G/DL 10.4-14.9 H HEMATOCRIT (test code = HCT) 44.0 % 31.5-44.1 N MEAN CELL VOLUME (test code = 93.4 Fl 84.5-98.6 N MCV) MEAN CELL HGB (test code = MCH) 31.8 pg 27.0-34.2 N MEAN CELL HGB CONCETRATION (test 34.1 G/DL 31.5-34.0 H code = MCHC) RED CELL DISTRIBUTION WIDTH (test 12.6 SD 11.5-14.5 N code = RDW) PLATELET COUNT (test code = PLT) 222.0 K/mm3 150-450 N MEAN PLATELET VOLUME (test code = 10.10 fL 7.0-10.5 N MPV) NEUTROPHIL % (test code = NT%) 63.9 % 40-76 N LYMPHOCYTE % (test code = LY%) 23.7 % 20.5-51.1 N MONOCYTE % (test code = MO%) 11.5 % 1.7-9.3 H EOSINOPHIL % (test code = EO%) 0.6 % 0.0-6.0 N BASOPHIL % (test code = BA%) 0.3 % 0.0-2.0 N NEUTROPHIL # (test code = NT#) 4.51 K/mm3 1.8-7.6 N LYMPHOCYTE # (test code = LY#) 1.7 K/mm3 0.6-3.2 N MONOCYTE # (test code = MO#) 0.8 K/mm3 0.3-1.1 N EOSINOPHIL # (test code = EO#) 0.0 K/mm3 0.0-0.4 N BASOPHIL # (test code = BA#) 0.0 K/mm3 0.0-0.1 N MANUAL DIFF REQUIRED (test code = NO DIFF/SCN CRITERIA MDIFF) URINALYSIS [id number] 07:33:00 Test Item Value Reference Range Interpretation Comments UA COLOR (test code = COLU) YELLOW discript YEL/STRAW UA APPEARANCE (test code = HAZY discript CLEAR A APPU) UA GLUCOSE DIPSTICK (test NEGATIVE mg/dL NEG code = DGLUU) UA BILIRUBIN DIPSTICK (test NEGATIVE mg/dL NEG code = BILU) UA KETONE DIPSTICK (test code NEGATIVE mg/dL NEG = KETU) UA SPECIFIC GRAVITY (test <=1.005 SG 1.005-1.030 code = SGU) UA BLOOD DIPSTICK (test code NEGATIVE mg/DL NEG = BECKY) UA PH DIPSTICK (test code = 6.0 pH UNITS 5.0-7.0 STEFANI) UA PROTEIN DIPSTICK (test NEGATIVE mg/dL NEG code = PROU) UA UROBILINIOGEN DIPSTICK 0.2 mg/dL <2.0 (test code = URO) UA NITRITE DIPSTICK (test NEGATIVE SCREEN NEG code = LIBERTAD) UA LEUKOCYTE ESTERASE 2+ Leuk/mcL NEGATIVE A DIPSTICK (test code = LEUU) UA WBC (test code = WBCU) 3-5 #WBC/HPF 0-3 A UA RBC (test code = RBCU) 1-3 #RBC/HPF 0-3 UA BACTERIA (test code = 1+ /HPF NONE-TRACE A BACU) UA SQUAMOUS CELLS (test code 3+ /HPF NONE A = SQU) UA AMORPHOUS SEDIMENT (test TRACE NONE SEEN code = AMORU) URINALYSIS [id number] 07:19:00 Test Item Value Reference Range Interpretation Comments UA COLOR (test code = COLU) YELLOW discript YEL/STRAW UA APPEARANCE (test code = HAZY discript CLEAR A APPU) UA GLUCOSE DIPSTICK (test NEGATIVE mg/dL NEG code = DGLUU) UA BILIRUBIN DIPSTICK (test NEGATIVE mg/dL NEG code = BILU) UA KETONE DIPSTICK (test code NEGATIVE mg/dL NEG = KETU) UA SPECIFIC GRAVITY (test <=1.005 SG 1.005-1.030 code = SGU) UA BLOOD DIPSTICK (test code NEGATIVE mg/DL NEG = BECKY) UA PH DIPSTICK (test code = 6.0 pH UNITS 5.0-7.0 STEFANI) UA PROTEIN DIPSTICK (test NEGATIVE mg/dL NEG code = PROU) UA UROBILINIOGEN DIPSTICK 0.2 mg/dL <2.0 (test code = URO) UA NITRITE DIPSTICK (test NEGATIVE SCREEN NEG code = LIBERTAD) UA LEUKOCYTE ESTERASE 2+ Leuk/mcL NEGATIVE A DIPSTICK (test code = LEUU)
--- NOTE | 2023-04-09 16:54 | ER ---
Nurse's Notes [facility] Name: Sukhwinder Barry Age: 32 yrs Sex: Female : 1990 Arrival Date: 04/09/2023 Time: 15:42 Bed 11 Private MD: Diagnosis: Cellulitis, unspecified;Hypokalemia Presentation: 04/09 15:52 Chief complaint: Hot flashes, vomiting, cough, and painful lump on left side of head x hb 2 week. Coronavirus screen: Client presents with at least one sign or symptom that may indicate coronavirus-19. Provider contacted for isolation considerations. Ebola Screen: No symptoms or risks identified at this time. Initial Sepsis Screen: Does the patient meet any 2 criteria? No. Patient's initial sepsis screen is negative. Does the patient have a suspected source of infection? No. Patient's initial sepsis screen is negative. Risk Assessment: Do you want to hurt yourself or someone else? Patient reports no desire to harm self or others. Onset of symptoms was March 28, 2023. 15:52 Method Of Arrival: Ambulatory hb 15:52 Acuity: MASOUD 3 hb Historical: - Allergies: 15:54 No Known Allergies; hb - Home Meds: 15:54 Seroquel Oral [Active]; hb - PMHx: 15:54 Anxiety; Bipolar disorder; Depression; kidney problems; Pancreatitis; Schizophrenia; hb - PSHx: 15:54 section; hb - Immunization history:: Adult Immunizations up to date. - Social history:: Smoking status: Patient reports the use of cigarette tobacco products, smokes one pack cigarettes per day. Screenin:00 Abuse screen: Denies threats or abuse. Denies injuries from another. Nutritional jl7 screening: No deficits noted. Tuberculosis screening: No symptoms or risk factors identified. Assessment: 16:00 General: Appears in no apparent distress. uncomfortable, Behavior is calm, cooperative, jl7 appropriate for age. Pain: Complains of pain in scalp Pain currently is 5 out of 10 on a pain scale. Neuro: Level of Consciousness is awake, alert, obeys commands, Oriented to person, place, time, situation. Cardiovascular: Patient's skin is warm and dry. Respiratory: Airway is patent Respiratory effort is even, unlabored, Respiratory pattern is regular, symmetrical. GI: Abdomen is non-distended. Derm: Skin is pink, warm \T\ dry. red/purple area to scalp noted. 17:00 Reassessment: VICKI Ruiz at bedside discussing results and POC. jl7 Vital Signs: 15:52 BP 141 / 105; Pulse 113; Resp 18; Temp 98.4(TE); Pulse Ox 100% on R/A; Weight 74.84 kg; hb Height 5 ft. 6 in. ; Pain 5/10; 15:52 Body Mass Index 26.63 (74.84 kg, 167.64 cm) hb 15:52 Pain Scale: Adult hb ED Course: 15:46 Patient arrived in ED. mr 15:47 [facility]C [facility] snw 15:47 Andrew Whitmore MD is Attending Physician. snw 15:52 Arm band placed on. hb 15:54 Triage completed. hb 16:00 Patient has correct armband on for positive identification. jl7 16:11 Inserted saline lock: 20 gauge in right antecubital area, using aseptic technique. hb Blood collected. 16:13 Alecia Bermudez, RN is Primary Nurse. hb 17:12 IV discontinued, intact, bleeding controlled, No redness/swelling at site. Pressure jl7 dressing applied. 17:12 No provider procedures requiring assistance completed. jl7 Administered Medications: 16:13 Drug: NS 0.9% IV 1000 ml Route: IV; Rate: 1 bolus; Site: right antecubital; hb 17:09 Follow up: Response: No adverse reaction; IV Status: Completed infusion; IV Intake: jl7 1000ml 16:52 Drug: Trimethoprim-Sulfamethoxazole PO (160 mg-800 mg (DS) 1 tablet Route: PO; hb 17:09 Follow up: Response: No adverse reaction jl7 17:09 Drug: Potassium PO Effervescent Tablet 25 mEq Route: PO; jl7 17:09 Follow up: Response: No adverse reaction jl7 Medication: 17:00 VIS not applicable for this client. jl7 Intake: 17:09 IV: 1000ml; Total: 1000ml. jl7 Outcome: 16:54 Discharge ordered by . snw 17:12 Discharged to home ambulatory. jl7 17:12 Condition: stable 17:12 Discharge instructions given to patient, family, Instructed on discharge instructions, follow up and referral plans. medication usage, Demonstrated understanding of instructions, follow-up care, medications, Prescriptions given X 2. 17:12 Patient left the ED. jl7 Signatures: Sara Jha FNP-C FNP-Gia Tripp Heather, RN RN Chico Biswas RN RN jl7 Corrections: (The following items were deleted from the chart) 15:55 15:52 BP 141 / 105; Pulse 113bpm; Resp 18bpm; Pulse Ox 100% RA; Temp 98.4F Temporal; hb hb
--- NOTE | 2023-04-09 16:54 | EDPHYS ---
Physician Documentation [facility] Name: Sukhwinder Brary Age: 32 yrs Sex: Female : 1990 Arrival Date: 04/09/2023 Time: 15:42 Bed 11 Private MD: ED Physician Andrew Whitmore HPI: 04/09 16:22 This 32 yrs old Female presents to ER via Ambulatory with complaints of Vomiting, snw Fever, bump on head. 16:22 The patient's rash thought to be caused by Dermatitis. The rash is located on the right snw occipital area. The rash can be described as macular. Onset: The symptoms/episode began/occurred suddenly, 2 day(s) ago, and became persistent. Associated signs and symptoms: Pertinent positives: fever, nausea, vomiting, malaise and fatigue x 2 weeks. The patient has not experienced similar symptoms in the past. It is unknown whether or not the patient has recently seen a physician. pt states there are brown recluse in her home. Historical: - Allergies: 15:54 No Known Allergies; hb - Home Meds: 15:54 Seroquel Oral [Active]; hb - PMHx: 15:54 Anxiety; Bipolar disorder; Depression; kidney problems; Pancreatitis; Schizophrenia; hb - PSHx: 15:54 section; hb - Immunization history:: Adult Immunizations up to date. - Social history:: Smoking status: Patient reports the use of cigarette tobacco products, smokes one pack cigarettes per day. ROS: 16:20 Constitutional: Positive for feeling hot, chills, and general malaise, no weight loss, snw Eyes: Negative for injury, pain, redness, and discharge, ENT: Negative for injury, pain, and discharge, Neck: Negative for injury, pain, and swelling, Cardiovascular: Negative for chest pain, palpitations, and edema, Respiratory: Negative for shortness of breath, cough, wheezing, and pleuritic chest pain, Abdomen/GI: Negative for abdominal pain, diarrhea, and constipation, positive for N/V Back: Negative for injury and pain, : Negative for injury, bleeding, discharge, and swelling, MS/Extremity: Negative for injury and deformity, Neuro: Negative for headache, weakness, numbness, tingling, and seizure, Psych: Negative for depression, anxiety, suicide ideation, homicidal ideation, and hallucinations. 16:20 Skin: Positive for rash. Exam: 16:19 Constitutional: This is a well developed, well nourished patient who is awake, alert, snw and in no acute distress. Eyes: Pupils equal round and reactive to light, extra-ocular motions intact. Lids and lashes normal. Conjunctiva and sclera are non-icteric and not injected. Cornea within normal limits. Periorbital areas with no swelling, redness, or edema. ENT: Nares patent. No nasal discharge, no septal abnormalities noted. Tympanic membranes are normal and external auditory canals are clear. Oropharynx with no redness, swelling, or masses, exudates, or evidence of obstruction, uvula midline. Mucous membranes moist. Neck: Trachea midline, no thyromegaly or masses palpated, and no cervical lymphadenopathy. Supple, full range of motion without nuchal rigidity, or vertebral point tenderness. No Meningismus. Chest/axilla: Normal chest wall appearance and motion. Nontender with no deformity. No lesions are appreciated. Respiratory: Lungs have equal breath sounds bilaterally, clear to auscultation and percussion. No rales, rhonchi or wheezes noted. No increased work of breathing, no retractions or nasal flaring. Abdomen/GI: Soft, non-tender, with normal bowel sounds. No distension or tympany. No guarding or rebound. No evidence of tenderness throughout. Back: No spinal tenderness. No costovertebral tenderness. Full range of motion. Skin: Warm, dry with normal turgor. Normal color with no rashes, no lesions, and no evidence of cellulitis. MS/ Extremity: Pulses equal, no cyanosis. Neurovascular intact. Full, normal range of motion. Neuro: Awake and alert, GCS 15, oriented to person, place, time, and situation. Cranial nerves II-XII grossly intact. Motor strength 5/5 in all extremities. Sensory grossly intact. Cerebellar exam normal. Normal gait. Psych: Awake, alert, with orientation to person, place and time. Behavior, mood, and affect are within normal limits. 16:19 Head/face: Noted is rash, tenderness, that is moderate, of the right occipital area, of the smaller than dime sized tender, erythematous macule with mild ecchymosis to inferior border.. 16:19 Cardiovascular: Rate: tachycardic, Rhythm: regular, Heart sounds: normal. Vital Signs: 15:52 BP 141 / 105; Pulse 113; Resp 18; Temp 98.4(TE); Pulse Ox 100% on R/A; Weight 74.84 kg; hb Height 5 ft. 6 in. ; Pain 5/10; 15:52 Body Mass Index 26.63 (74.84 kg, 167.64 cm) hb 15:52 Pain Scale: Adult hb MDM: 15:50 Patient medically screened. snw 16:57 Differential diagnosis: allergic reaction, insect bite, cellulitis. Data reviewed: snw vital signs, nurses notes, lab test result(s). Counseling: I had a detailed discussion with the patient and/or guardian regarding: the historical points, exam findings, and any diagnostic results supporting the discharge/admit diagnosis, the presence of at least one elevated blood pressure reading (>120/80) during this emergency department visit, lab results, the need for outpatient follow up, for definitive care, to return to the emergency department if symptoms worsen or persist or if there are any questions or concerns that arise at home. Special discussion: I have referred the patient to see his PCP for further evaluation of high blood pressure. Based on the history and exam findings, there is no indication for further emergent testing or inpatient evaluation. I discussed with the patient/guardian the need to see the primary care provider for further evaluation of the symptoms. 0512 15:56 Order name: Thyroid Stimulat Hormone; Complete Time: 16:51 snw 12 15:56 Order name: CBC with Diff; Complete Time: 16:39 snw 12 15:56 Order name: CMP; Complete Time: 16:51 snw 12 15:56 Order name: COVID-19 SARS RT PCR; Complete Time: 16:51 snw Administered Medications: 16:13 Drug: NS 0.9% IV 1000 ml Route: IV; Rate: 1 bolus; Site: right antecubital; hb 17:09 Follow up: Response: No adverse reaction; IV Status: Completed infusion; IV Intake: jl7 1000ml 16:52 Drug: Trimethoprim-Sulfamethoxazole PO (160 mg-800 mg (DS) 1 tablet Route: PO; hb 17:09 Follow up: Response: No adverse reaction jl7 17:09 Drug: Potassium PO Effervescent Tablet 25 mEq Route: PO; jl7 17:09 Follow up: Response: No adverse reaction jl7 Disposition: 17:17 Co-signature as Attending Physician, Andrew Whitmore MD I agree with the assessment and kdr plan of care. Disposition Summary: 04/09/23 16:54 Discharge Ordered Location: Home snw Condition: Stable snw Diagnosis - Cellulitis, unspecified snw - Hypokalemia snw Followup: snw - With: Emergency Department - When: As needed - Reason: Worsening of condition Followup: snw - With: Private Physician - When: 2 - 3 days - Reason: Recheck today's complaints, Continuance of care, Re-evaluation by your physician Discharge Instructions: - Discharge Summary Sheet snw - Cellulitis, Adult snw - Potassium Content of Foods snw - Hypokalemia snw - Rehydration, Adult snw Forms: - Medication Reconciliation Form snw - Thank You Letter snw - Antibiotic Education snw - Prescription Opioid Use snw Prescriptions: - Bactrim DS 800-160 mg Oral Tablet - take 1 tablet by ORAL route every 12 hours for 10 days; 20 tablet; Refills: 0, snw Product Selection Permitted - promethazine 25 mg Oral Tablet - take 1 tablet by ORAL route every 6 hours As needed; 20 tablet; Refills: 0, snw Product Selection Permitted Signatures: Dispatcher [employer] Andrew Sarah MD MD kdr Sara Jha, PRE K TEACHER-C PRE K TEACHER-Csnw Alecia Bermudez, RN RN [place] Kong RN RN jl7
[2023-04-09] MEDS ORDERED: SMZ./TMP. 800/160 MG TABLET ONE (16:57)
[2023-04-09] MEDS ORDERED: POTASSIUM 25 MEQ EFFERV TAB ONE (17:05)
[2023-04-09 17:31] VITALS: BP 141/105; TEMP 98.4; O2SAT 100
== END 2023-04-09 17:12 | disposition home or self-care (01) ==
LOC: ER 15:42
DX: L03.90 Cellulitis, unspecified (principal); E87.6 Hypokalemia
CPT/HCPCS: 36415; 80053; 84443; 85025; 96360; 99284; J7030; U0003